=== PATIENT | female | born 1940 | race Caucasian/White ===

== ENCOUNTER → 2016-12-09 | Day surgery (SDC) | payer MEDICARE, OTHER ==
[2016-12-08 11:53] VITALS: BMI 26.6
[~2016-12-09] MED LIST: Iopamidol-M 300 61% 15 ML VIAL ONE
[2016-12-09 10:01] VITALS: BP 151/92; TEMP 98.3
--- NOTE | 2016-12-09 12:35 | RAD ---
LUMBAR SPINE FOUR VIEWS: History: Lumbar radiculopathy. FINDINGS: AP view along with lateral views obtained. Lateral views obtained in neutral, flexion, and extension positions. FINDINGS: In the AP projection there is a slight sclerotic curvature to the left with apex at L2-3. Moderate d egenerative changes are noted. There is loss of disc height at all levels of the lumbar spine. Promi nent osteophytes are seen. There is slight lateral wedging of the L2 and L3 vertebra on the right wh ich contributes to the scoliotic curvature. Facet hypertrophy is seen throughout. Minimal anterolist hesis at L5-S1. No significant change in alignment with flexion or extension. IMPRESSION: Moderate degenerative changes of the lumbar spine. POS: HENRY
--- NOTE | 2016-12-09 12:37 | RAD ---
CERVICAL SPINE SIX VIEWS: Technique: Lateral views obtained in neutral, flexion, and extension positions. History: Cervical radiculopathy. Date: 12-09-16 FINDINGS: Degenerative changes of the cervical spine noted. There is loss of disc space at C5-6 and C6-7. Prom inent anterior osteophytes are seen at C4-5, C5-6, and C6-7. Slight posterior subluxation at C5-6 me asuring approximately 3 mm. Vertebral body height is preserved. No significant change in alignment w ith flexion or extension. IMPRESSION: Moderate to severe degenerative changes seen in the cervical spine from C4 through C7 as described. POS: HENRY
--- NOTE | 2016-12-09 14:40 | RAD ---
LUMBAR AND CERVICAL MYELOGRAMS: FINDINGS: The home health cna film showed prominent degenerative changes of the lumbar spine with a scoliotic curvature with convexity to the right. Lumbar puncture performed with a 22 gauge spinal needle at the L2 leve l. Clear CSF was recovered. Isovue-300 M 15 mL was injected at this site, under fluoroscopic obser vation. The thecal sac opacifies at the injection site. Contrast opacifies the lumbar spinal canal. There is suggestion of tight stenosis at L4-L5. The patient was then placed head down with the neck extended. Contrast was seen to flow from the marlo mbar canal into the cervical canal. Once the cervical canal was opacified, the patient was placed b ack in the neutral position. See post myelogram CT of cervical spine and lumbar spine for further characterization of findings at each level. PROCEDURE IN DETAIL: The procedure was discussed with the patient and the OP permit was signed. The patient was placed prone on the fluoroscopy table. The lower back was prepped and draped in a s terile manner. L2 was chosen for puncture. Local anesthesia was administered with Lidocaine and bi carbonate, under fluoroscopic guidance. A 22 gauge spinal needle was used to enter the spinal canal , using a paramidline approach from the left, at L2. Clear CSF was recovered. Isovue-300 M 15 mL w as then injected into the thecal sac, under fluoroscopic observation. The patient was then placed h ead down, to allow contrast to flow into the cervical canal. A sterile dressing was applied. The p atient tolerated the procedure well. The patient was then sent to CT for post myelogram CT of the c ervical spine and the lumbar spine. POS: HENRY
--- NOTE | 2016-12-09 14:55 | CT ---
POST MYELOGRAM CERVICAL SPINE CT: HISTORY: Cervical radiculopathy. COMPARISON: None. TECHNIQUE: Post myelogram cervical spine CT was performed in the axial plane. Reformatted images were submitte d for interpretation. FINDINGS: The visualized soft tissue neck structures are unremarkable. There is some mass effect upon the pos terior midline oropharynx due to medial deviation of the right internal carotid artery. A heterogen eous appearance of the thyroid gland with a possible calcified lesion is noted. A hypodense lesion may also be present in the right thyroid lobe. A non-emergent thyroid ultrasound is recommended. T he upper mediastinum and lung apices are unremarkable. Thoracic spine vertebral body height is maintained. There is no fracture. There are degenerative c hanges of the intraarticular facets. Based on the coronal reformatted images, there is degenerative change involving the right C1-C2 lateral mass articulation. There are also mild degenerative yung es of the facets, as demonstrated on the coronal reformatted images. Anterolisthesis of 2.6 mm of C2 upon C3, anterolisthesis of 2.7 mm of C3 upon C4, and anterolisthesi s of 2.6 mm of C7 upon T1. C2-C3: No significant disk osteophyte complex. No significant central canal stenosis. Right and l eft neural foramina are patent. There is bilateral facet hypertrophy. C3-C4: Broad disk osteophyte complex abuts the thecal sac and effaces the ventral subarachnoid spa ce. Mild central canal stenosis. The right neural foramen is patent. Mild left foraminal narrowin g, due to degenerative change, of the uncovertebral joint and facet hypertrophy. C4-C5: Broad disk osteophyte complex abuts the thecal sac. There is deformity of the central and l eft paracentral cord. Mild central canal stenosis. Moderate right foraminal narrowing due to degen erative change of the uncovertebral joint and right facet hypertrophy. The left neural foramen is p atent. C5-C6: Broad-based disk osteophyte complex abuts the thecal sac. Ventral subarachnoid space appear s to be maintained. No significant mass effect upon the cervical cord. Mild central canal stenosis . Degenerative changes of the right uncovertebral joint and right facet hypertrophy result in moder ate right foraminal narrowing. The left neural foramen is patent. C6-C7: Broad-based disk osteophyte complex abut the thecal sac. There is mild central canal stenos is. The right neural foramen is patent. Mild left foraminal narrowing. C7-T1: No significant disk osteophyte complex. No significant central canal stenosis. The neural foramina are patent. IMPRESSION: Degenerative changes of the cervical spine, as detailed above. POS: HENRY
--- NOTE | 2016-12-09 15:11 | CT ---
POST MYELOGRAM LUMBAR SPINE CT: History: Lumbar radiculopathy. Comparison: None. Technique: Post myelogram lumbar spine CT is performed in the axial plane. Reformatted images are ha bmitted for interpretation. FINDINGS: The gallbladder appears to be surgically absent. Atherosclerosis of a nonaneurysmal aorta is noted. No retroperitoneal mass, lymphadenopathy, or hematoma. Symmetric attenuation of the psoas muscles. V isualized alimentary canal is unremarkable. Limited evaluation of the solid organs due to technique. No obvious solid organ abnormality. Coronal reformatted images demonstrate leftward curvature of the lumbar spine. There are five lumbar type vertebral bodies. The apex of the curvature of the lumbar spine is at the L2-3 level. There is vacuum disc phenomenon at T11-12, L1-2, through L5-S1. Lumbar spine vertebral height is maintained. There is no fracture. Conus medullaris terminates at th e superior endplate of L1. T11-L2: No high grade central canal stenosis. There appears to be moderate bilateral neural foramina l narrowing. T12-L1: No significant posterior disc abnormality. No significant canal stenosis or foraminal narrow ing. L1-2: Vacuum disc phenomenon. Broad based disc bulge, ligamentum flavum thickening, and mild to mode rate central canal stenosis. Moderate severe right and mild to moderate left neural foraminal narrow ing. L2-3: Vacuum disc phenomenon. There is broad based disc bulge, ligamentum flavum thickening, mild to moderate central canal stenosis. Mild right and left neural foraminal narrowing. L3-4: Vacuum disc phenomenon. There is a broad based disc bulge, ligamentum flavum thickening and fa cet hypertrophy that result in moderate to severe central canal stenosis. The thecal sac demonstrate s minimal contrast at this level. Mild to moderate bilateral neural foraminal narrowing. L4-5: Vacuum disc phenomenon. Broad based disc bulge. Ligamentum flavum thickening results in mild c anal stenosis. Moderate right and severe left foraminal narrowing. L5-S1: Vacuum disc phenomenon. No significant high grade central canal stenosis. Moderate right and severe left foraminal narrowing. Note, there is abrupt decrease in intrathecal contrast below the L3-4 level likely due to central ca nal stenosis at L3-4. There is some contrast present at the L4-5 and L5-S1 level. A small amount of contrast in the S2 level is noted. IMPRESSION: 1. Degenerative change of the lumbar spine as above. There is significant central canal stenosis at L3-4. POS: DAMIAN
== END ==
LOC: RAD 08:59
PROVIDERS: ATTEND Surgery
PROC: B01BYZZ Fluoroscopy of Spinal Cord using Other Contrast (ICD-10-PCS; principal; 2016-12-09)
DX: M54.12 Radiculopathy, cervical region (principal); M54.16 Radiculopathy, lumbar region; M54.81 Occipital neuralgia; I10 Essential (primary) hypertension; M47.9 Spondylosis, unspecified; Z88.8 Allergy status to other drugs, medicaments and biological substances; Z88.5 Allergy status to narcotic agent; Z79.51 Long term (current) use of inhaled steroids; Z79.899 Other long term (current) drug therapy; Z95.0 Presence of cardiac pacemaker; Z90.89 Acquired absence of other organs; Z90.49 Acquired absence of other specified parts of digestive tract; Z98.42 Cataract extraction status, left eye; Z98.41 Cataract extraction status, right eye; Z98.890 Other specified postprocedural states
CPT/HCPCS: 62305; 72050; 72120; 72126; 72132

== ENCOUNTER 2017-10-19 08:08 | Outpatient (CLI) | payer MEDICARE ==
[2017-10-19 11:32] LABS: Hemoglobin 13.9 g/dL (12.0-16.0); Mean Corpuscular HGB CONC 35.6 g/dL (32.0-36.0); Mean Corpuscular Hemoglobin 33.8 pg (27.0-31.0); Mean Platelet Volume 7.8 fL (7.4-10.4); Platelet Count 143 thou/uL (130-400); RBC Distribution Width 12.1 % (11.5-14.5); Red Blood Cell (RBC) Count 4.12 mill/uL (4.20-5.40); White Blood Cell (WBC) Count 5.1 thou/uL (4.8-10.8)
[2017-10-19 11:41] LABS: INR-International Normal Ratio 1.1; PTT 30.5 SEC (22.9-36.1); Prothrombin Time 14.2 SEC (12.0-14.7)
[2017-10-19 11:55] LABS: Anion Gap 15 mmol/L (10-20); BUN (Urea Nitrogen) 19 mg/dL (9.8-20.1); Calc. Creatinine Clearance 0 mL/min (70-130); Calcium 9.5 mg/dL (7.8-10.44); Carbon Dioxide 27 mmol/L (23-31); Chloride 96 mmol/L (98-107); Estimated GFR-MDRD 85; Glucose 87 mg/dL (83-110); Potassium 3.4 mmol/L (3.5-5.1); Sodium 135 mmol/L (136-145)
--- NOTE | 2017-10-19 12:22 | CT ---
CT ARTERIOGRAM CHEST WITH AND WITHOUT IV CONTRAST WITH 3D POSTPROCESSING: Date: 10/19/17 HISTORY: Chest pain. Atrial fibrillation. Dyspnea. Coronary mapping. FINDINGS: There is good contrast opacification of the central pulmonary arteries and thoracic aorta with normal branching of the great vessels. Small amount of arterial calcification at the aortic arch and solitario ry arteries. No pleural fluid, pneumothorax, or mediastinal adenopathy are apparent. Minimal pericard ial fluid. Lungs are incompletely imaged. IMPRESSION: Atherosclerosis. No acute abnormalities are otherwise demonstrate. POS: HENRY
--- NOTE | 2017-10-19 12:31 | EKG ---
Test Reason : Blood Pressure : / mmHG Vent. Rate : 089 BPM Atrial Rate : 441 BPM P-R Int : 000 ms QRS Dur : 086 ms QT Int : 386 ms P-R-T Axes : 000 -32 -46 degrees QTc Int : 469 ms Electronic atrial pacemaker Left axis deviation Possible Anterior infarct (cited on or before 15-JUN-2012) Abnormal ECG When compared with ECG of 15-JUN-2012 09:25, Electronic atrial pacemaker has replaced Sinus rhythm Vent. rate has increased BY 31 BPM QT has lengthened Confirmed by CURT CAMPBELL, SSnow ([id number]) on 10/19/2017 12:30:43 PM Referred By: [facility] Confirmed By:DR. Kin ELIAS MD
[2017-10-19] MEDS ORDERED: Iopamidol 370 76% 100 ML VIAL ONE (14:47)
== END 2017-10-19 08:09 | disposition home or self-care (01) ==
LOC: CT 08:08
PROVIDERS: ATTEND Internal Medicine Cardiovascular Disease
DX: I48.0 Paroxysmal atrial fibrillation (principal); I70.90 Unspecified atherosclerosis
CPT/HCPCS: 71275; 82565; 84520; 85027; 85610; 85730; 93005; 93010

== ENCOUNTER 2017-10-25 08:08 | Observation (INO) | payer MEDICARE ==
[2017-10-25] MEDS ORDERED: Heparin 10,000 UNITS/1 ML VIAL ONE (08:56)
[2017-10-25] MEDS ORDERED: Isoproterenol 0.2 MG/1 ML AMP ONE (09:00)
[2017-10-25] MEDS ORDERED: Phenylephrine HCL 10 MG/ML VIAL ONE (10:28)
[2017-10-25] MEDS ORDERED: Fentanyl 100 MCG/2 ML VIAL ONE (10:55)
[2017-10-25] MEDS ORDERED: Heparin 25,000 units/D5W 500 ML ONE (11:54)
--- NOTE | 2017-10-25 13:23 | OP ---
DATE OF PROCEDURE: 10/25/2017 SURGEON: Dr. Kavon Willingham PROCEDURE: ELECTROPHYSIOLOGY STUDY/RADIOFREQUENCY ABLATION REFERRING PHYSICIAN: Dr. Edgardo Amezcua Mrs. Stafford is here, hence paroxysmal high symptomatic atrial fibrillation episodes. She has history of sick sinus syndrome and a pacemaker implantation in place. She is here for radiofrequency ablation of pulmonary venous isolation procedure. PROCEDURE: The patient received propofol per Anesthesia specialist for general anesthesia. After adequate sedation achieved, the left and right femoral venous area was prepped, draped, anesthetized with subcutaneous lidocaine. Under ultrasound guidance, the left femoral vein was cannulated and an 11 Moldovan short sheath as well as Prefecees catheter long sheath was advanced into the inferior vena cava. Through this a dual Deca catheter was advanced to the right atrium and eventually the CS was cannulated. An ice catheter was advanced through the Moldovan sheath to the right atrium and this was used to monitor the transseptal procedures as well as the pericardial space for effusion. No effusion was noted throughout the procedure. The patient remained hemodynamically stable. The right femoral vein was also cannulated with ultrasound guidance and two 8 Moldovan short sheaths were introduced which was exchanged for a SI 1 transseptal sheath. The transseptal sheath, a transseptal puncture was performed x2, one of the sheaths were exchanged to an Agilis deflectable sheath through which a Lasso catheter was then inserted right atrium used to obtain 3D images of the right atrium as well. Following that, the ablation catheter was advanced to the left atrium and a pulmonary venous isolation procedure was performed eliminating potentials in all 4 pulmonary veins. In fact, there was small intermediate vein in between the right superior and right inferior vein and the signals also eliminating this vein as well. Following that ventricular pacing proved no VA conduction from the left ventricle. Burst atrial pacing induced only transient atrial fibrillation. No other arrhythmia was induced. The pacemaker was monitored throughout the procedure and adequate pacing and sensing numbers were ascertained by the end of the case. ICE images revealed no significant fluid accumulation in the pericardial space and cardiac silhouette did not change. Following that isuprel was also used at 10 mcg and we rechecked the patency of the pulmonary veins, any remaining reconnection was re-ablated. Following that the catheter was removed from the left atrium. IV heparin was used throughout the left atrial excess ascertaining ACT over 350. At this point , the ACT was rechecked and the heparin was reversed with protamine. Total ablation time was 70 minutes and 56 seconds. Total number of lesions 26. 40 garay was used throughout the procedure. The esophageal probe and the vagus was used to monitor temperature throughout the case. CONCLUSION: 1. Successful pulmonary venous isolation procedure. 2. Adequate pacemaker function pre and post-procedure. 3. Plan routine postoperative care. Resume anticoagulation. Monitor for recurrence. MTDD
[2017-10-25] MEDS ORDERED: Protamine Sulfate 50 MG/5 ML VIAL ONE (13:50)
[2017-10-25] MEDS ORDERED: Acetaminophen/Codeine 30-300mg Tablet PO PRN ×2 (14:20)
[2017-10-25] MEDS ORDERED: Heparin 30,000 units/30 ml VIAL ONE (15:08)
[2017-10-25] MEDS ORDERED: PROPOFOL 200 MG/20 ML VIAL ONE (15:08)
[2017-10-25] MEDS ORDERED: PHENYLEPHRINE-NS 100 MCG/ML 10 ML SYRINGE ONE (15:08)
[2017-10-25] MEDS ORDERED: Lidocaine 1% PF 5 ML VIAL ONE (15:08)
[2017-10-25] MEDS ORDERED: Ondansetron HCl/PF 4 MG/2 ML Vial ONE (15:08)
[2017-10-25] MEDS ORDERED: Acetaminophen 325 MG TAB PO PRN ×2 (18:27→20:20)
[2017-10-25] MEDS ORDERED: traMADol HCl 50 MG TAB PO PRN (18:27)
[2017-10-25] MEDS ORDERED: Acetaminophen 500 MG TAB ONE (18:43)
[2017-10-25 19:42] VITALS: BMI 27.6
[2017-10-25] MEDS: Metoprolol Tartrate 25 MG TAB PO SCH (20:59)
[2017-10-25] MEDS: Apixaban 2.5 MG TAB PO SCH (21:01)
--- NOTE | 2017-10-25 22:41 | EKG ---
Test Reason : POST ABLATION Blood Pressure : / mmHG Vent. Rate : 082 BPM Atrial Rate : 083 BPM P-R Int : 000 ms QRS Dur : 088 ms QT Int : 402 ms P-R-T Axes : 000 024 074 degrees QTc Int : 469 ms Electronic atrial pacemaker When compared with ECG of 19-OCT-2017 11:02, Borderline criteria for Anterior infarct are no longer Present Nonspecific T wave abnormality has replaced inverted T waves in Inferior leads Confirmed by Gissel WILEY ([id number]) on 10/25/2017 10:41:06 PM Referred By: NAYAN Confirmed By:Gissel WILEY
--- NOTE | 2017-10-25 23:04 | RAD ---
PORTABLE CHEST ONE VIEW: 10/25/2017 10:26 p.m. HISTORY: Postop chest. FINDINGS: The heart size is normal. The aorta is tortuous. There is a left-sided pacemaker device. The lungs are well expanded without lobar consolidation, pneumothoraces, or pleural effusions. There is a mad[place] cified granuloma in the right lower lung. There are postop changes of bilateral rotator cuff repair. IMPRESSION: No radiographic evidence of acute cardiopulmonary process. POS: HENRY
[2017-10-26 07:32] VITALS: TEMP 99.1
[2017-10-26] MEDS ORDERED: Furosemide 20 MG TAB PO SCH (09:00)
[2017-10-26] MEDS ORDERED: Loratadine 10 MG TAB PO SCH (09:00)
[2017-10-26] MEDS ORDERED: Hydrochlorothiazide 25 MG TAB PO SCH (09:00)
[2017-10-26] MEDS ORDERED: Multivitamin W/ Minerals 1 TAB PO SCH (09:00)
[2017-10-26] MEDS ORDERED: Citalopram 10 MG TAB PO SCH (09:00)
[2017-10-26] MEDS ORDERED: Fluticasone Propionate Nasal Spray 16 gm Bottle NASAL SCH (09:00)
[2017-10-26] MEDS: Apixaban 2.5 MG TAB PO SCH (09:19)
[2017-10-26] MEDS: Metoprolol Tartrate 25 MG TAB PO SCH (09:19)
[2017-10-26 12:11] VITALS: BP 120/59
--- NOTE | 2017-10-27 05:19 | DIS ---
DATE OF ADMISSION: 10/25/2017 DATE OF DISCHARGE: 10/26/2017 REFERRING PHYSICIAN: Dr. Amezcua. ADMISSION PROBLEMS: 1. Paroxysmal atrial fibrillation. 2. Sick sinus syndrome with a dual chamber pacemaker in place. 3. Status post elective pulmonary venous isolation procedure. HOSPITAL COURSE: Ms. Stafford underwent a pulmonary venous isolation procedure hence symptomatic atrial fibrillation. She tolerate the procedure well and no complications were noted subsequently, she is atrially paced in the telemetry strips. PHYSICAL EXAMINATION: VITAL SIGNS: Her vital signs are stable with blood pressure 120/59, heart rate 89, respirations are 20, temperature 99.1 degrees Fahrenheit. HEENT: Reveals no arrhythmias, no abnormalities, pacemaker site is stable. The right groin site without significant hematoma. LUNGS: Coarse without crackles. CARDIOVASCULAR: Heart sounds are regular rate and rhythm. NECK: No JVD is appreciated. SKIN: Without rash. ASSESSMENT AND PLAN: Ms. Stafford is a 76-year-old woman who had paroxysmal atrial fibrillation, underwent a pulmonary venous isolation procedure by Dr. Willingham isolating all four pulmonary veins. She tolerated procedure well. Currently, no signs of fluid overload or other complications are seen. She is ready for discharge. She is being discharged to home with her current medication including apixaban 2.5 mg twice a day, metoprolol tartrate 12.5 mg twice a day, furosemide 20 mg daily. She was given prescriptions for extra furosemide if necessary, also Protonix and carafate for 2-4 weeks. She will follow up in our office in 6 weeks. JEANINE
== END 2017-10-26 15:05 | disposition home or self-care (01) ==
LOC: CCL 08:08 → 2NO 18:36
PROVIDERS: ADMIT Internal Medicine Cardiovascular Disease; ATTEND Internal Medicine Cardiovascular Disease
PROC: 4A023FZ Measurement of Cardiac Rhythm, Percutaneous Approach (ICD-10-PCS; principal; 2017-10-25)
PROC: 02583ZZ Destruction of Conduction Mechanism, Percutaneous Approach (ICD-10-PCS; 2017-10-25)
DX: I48.0 Paroxysmal atrial fibrillation (principal); I49.5 Sick sinus syndrome; Z95.0 Presence of cardiac pacemaker; Z79.01 Long term (current) use of anticoagulants; Z79.51 Long term (current) use of inhaled steroids; Z79.899 Other long term (current) drug therapy; Z88.5 Allergy status to narcotic agent; Z88.8 Allergy status to other drugs, medicaments and biological substances
CPT/HCPCS: 71045; 76942; 85347 ×2; 93005 ×2; 93613; 93622; 93623; 93656; 93662; C1730; C1731; C1732 ×2; C1759; C1769; G0378; 93010; J1644; J2001; J2370; J2405; J2704; J2720; J3010

== ENCOUNTER 2018-04-07 07:29 | Outpatient (CLI) | payer MEDICARE ==
[2018-04-07 14:05] LABS: Bilirubin Negative (Negative); Blood, Urine Negative (Negative); Clarity CLEAR (Clear); Glucose, Urine (Dipstick) Negative (Negative); Leukocyte Trace (Negative); Nitrite Negative (Negative); Protein, Urine (Dipstick) Negative (Neg-Trace); Specific Gravity, Urine 1.014 (1.002-1.036); Urobilinogen 0.2 mg/dL (0.2-1.0); pH, Urine 7.5 (5.0-9.0)
[2018-04-07 14:11] LABS: Bacteria/HPF None Seen HPF (None Seen); Hyaline Casts/LPF 0-3 HYALINE CAST LPF (0-3 Hyaline); RBC/HPF 0-3 HPF (0-3); Squamous Epithelial 0-3 HPF (0-3)
--- NOTE | 2018-04-07 17:17 | EKG ---
Test Reason : Blood Pressure : / mmHG Vent. Rate : 089 BPM Atrial Rate : 088 BPM P-R Int : 000 ms QRS Dur : 084 ms QT Int : 342 ms P-R-T Axes : 000 005 051 degrees QTc Int : 416 ms Atrial pacemaker Low voltage QRS Poor anterior R wave progression Nonspecific ST-T changes Abnormal ECG When compared with ECG of 26-OCT-2017 06:39, Atrial fibrillation has replaced Electronic atrial pacemaker Confirmed by DR. Len BISWAS ([id number]) on 04/07/2018 5:17:33 PM Referred By: [facility] Confirmed By:DR. Len BISWAS
== END 2018-04-07 07:30 | disposition home or self-care (01) ==
LOC: LABBT 07:29
PROVIDERS: ATTEND Orthopaedic Surgery
DX: Z01.818 Encounter for other preprocedural examination (principal); M17.11 Unilateral primary osteoarthritis, right knee
CPT/HCPCS: 81001; 87081; 93005; 93010

== ENCOUNTER 2018-04-13 08:48 | Outpatient (CLI) | payer MEDICARE ==
[2018-04-13 11:51] LABS: Prothrombin Time 13.3 SEC (12.0-14.7)
[2018-04-13 11:54] LABS: Hemoglobin 10.8 g/dL (12.0-16.0); Mean Corpuscular HGB CONC 34.8 g/dL (32.0-36.0); Mean Corpuscular Hemoglobin 36.8 pg (27.0-31.0); Platelet Count 144 thou/uL (130-400); RBC Distribution Width 13.8 % (11.5-14.5); Red Blood Cell (RBC) Count 2.93 mill/uL (4.20-5.40); White Blood Cell (WBC) Count 2.2 thou/uL (4.8-10.8)
[2018-04-13 12:05] LABS: Anion Gap 11 mmol/L (10-20); BUN (Urea Nitrogen) 24 mg/dL (9.8-20.1); Calc. Creatinine Clearance 0 mL/min (70-130); Calcium 9.7 mg/dL (7.8-10.44); Carbon Dioxide 30 mmol/L (23-31); Chloride 104 mmol/L (98-107); Estimated GFR-MDRD 79; Glucose 96 mg/dL (83-110); Potassium 3.4 mmol/L (3.5-5.1); Sodium 142 mmol/L (136-145)
[2018-04-13 12:26] LABS: Band 4 % (5-11); Lymphocytes 65 % (21-51); MDiff Complete? YES; Monocytes 5 % (0-10); Neutrophil 25 % (42-75); Polychromasia SLIGHT = 2-3 cells (100X) (0-2/hpf)
== END 2018-04-13 08:49 | disposition home or self-care (01) ==
LOC: LABBT 08:48
PROVIDERS: ATTEND Orthopaedic Surgery
DX: Z01.812 Encounter for preprocedural laboratory examination (principal); M17.11 Unilateral primary osteoarthritis, right knee
CPT/HCPCS: 80048; 85025; 85610; 86850; 86900; 86901

== ENCOUNTER 2018-04-18 07:39 | Inpatient (IN) | payer MEDICARE ==
[2018-04-18] MEDS ORDERED: Sodium Chloride 0.9% 100 ML ONE (08:22)
[2018-04-18] MEDS ORDERED: Tranexamic Acid 1,000 MG/10 ML VIAL ONE ×2 (08:22→12:33)
[2018-04-18] MEDS ORDERED: CEFAZOLIN 2 GM/50 ML BAG ONE (08:22)
[2018-04-18] MEDS ORDERED: Midazolam HCl 2 mg/2 ml Vial ONE (09:08)
[2018-04-18] MEDS ORDERED: Fentanyl 100 MCG/2 ML VIAL ONE ×2 (09:08→12:35)
[2018-04-18] MEDS ORDERED: Bupivacaine PF 0.5% 30 ML VIAL ONE (09:23)
[2018-04-18] MEDS ORDERED: traMADol HCl 50 MG TAB PO PRN ×3 (10:29→10:40)
[2018-04-18] MEDS ORDERED: diphenhydrAMINE 25 MG CAP PO PRN (10:29)
[2018-04-18] MEDS ORDERED: Fentanyl 100 MCG/2 ML VIAL SLOW IVP PRN (10:29)
[2018-04-18] MEDS ORDERED: Promethazine HCl 25 MG/ML VIAL IM PRN ×3 (10:29→12:28)
[2018-04-18] MEDS ORDERED: Zolpidem Tartrate 5 MG TAB PO PRN ×2 (10:29→10:40)
[2018-04-18] MEDS ORDERED: Ondansetron PF 4 MG/2 ML Vial IVP PRN ×2 (10:29→10:40)
[2018-04-18] MEDS ORDERED: Acetaminophen 325 MG TAB PO PRN (10:29)
[2018-04-18] MEDS ORDERED: Tranexamic Acid 1,000 MG in Sodium Chloride 0.9% 100 ML IVPB SCH (10:30)
[2018-04-18] MEDS ORDERED: CEFAZOLIN/Water 2 GM/20 ML SYRINGE SLOW IVP SCH (10:30)
[2018-04-18] MEDS ORDERED: Loratadine 10 MG TAB PO PRN (10:33)
[2018-04-18] MEDS ORDERED: Pentazocine HCl/Naloxone HCl 50/0.5 MG TAB PO PRN ×3 (10:34→23:59)
[2018-04-18] MEDS ORDERED: Acetaminophen/Codeine 30-300mg Tablet PO PRN (10:39)
[2018-04-18] MEDS ORDERED: Ropivacaine HCl/PF 250 ML in Premix Bag 1 BAG NERVE BLCK SCH (10:40)
[2018-04-18] MEDS ORDERED: Fentanyl 100 MCG/2 ML VIAL IV PRN (10:40)
[2018-04-18] MEDS ORDERED: Ondansetron HCl/PF 4 MG/2 ML Vial IVP PRN (12:28)
[2018-04-18] MEDS ORDERED: Promethazine HCl 25 MG/ML VIAL SLOW IVP PRN (12:28)
[2018-04-18 14:18] VITALS: BMI 28.3
[2018-04-18] MEDS ORDERED: Ropivacaine 0.5% HCl/PF (150 MG/30 ML VIAL) ONE (14:43)
[2018-04-18] MEDS ORDERED: Bupivacaine 0.25% HCL 30 ML VIAL ONE (14:43)
[2018-04-18] MEDS: Sodium Chloride 0.9% 1,000 ML IV SCH ×2 (15:01→20:33)
[2018-04-18] MEDS ORDERED: PHENYLEPHRINE-NS 100 MCG/ML 10 ML SYRINGE ONE (15:02)
[2018-04-18] MEDS ORDERED: PROPOFOL 200 MG/20 ML VIAL ONE (15:02)
[2018-04-18] MEDS ORDERED: Dexamethasone 20 MG/5 ML VIAL ONE (15:02)
[2018-04-18] MEDS ORDERED: Ondansetron PF 4 MG/2 ML Vial ONE (15:02)
[2018-04-18] MEDS ORDERED: Lidocaine 1% PF 5 ML VIAL ONE (15:02)
[2018-04-18] MEDS: CEFAZOLIN 2 GM/50 ML-DEXTROSE 2 GM in Premix Bag 1 BAG IVPB SCH ×2 (15:12→23:14)
--- NOTE | 2018-04-18 15:19 | PDOC.PN ---
- Subjective Encounter Start Date: 04/18/18 Encounter Start Time: 15:17 Patient seen and examined for med mngt. No new complaints. Pain controlled. - Objective MAR Reviewed: Yes Vital Signs & Weight: Vital Signs (12 hours) Temp Pulse Resp BP Pulse Ox 04/18/18 14:00 98.2 F 90 18 107/61 95 Weight Weight 165 lb Additional Labs: Laboratory Tests 10/29/15 04/13/18 04/13/18 13:33 11:05 11:05 Hgb 10.8 L Potassium 3.4 L Creatinine 0.71 Est GFR (Non-Af Amer) 74 EKG Reviewed by me: Yes (Paced) Phys Exam - Physical Examination Constitutional: NAD Respiratory: no wheezing, no rhonchi Cardiovascular: RRR, no rub Gastrointestinal: soft, non-tender, positive bowel sounds Musculoskeletal: no edema Neurological: moves all 4 limbs Psychiatric: A&O x 3 Dx/Plan (1) Hypokalemia Code(s): E87.6 - HYPOKALEMIA Status: Acute (2) CKD (chronic kidney disease) stage 2, GFR 60-89 ml/min Code(s): N18.2 - CHRONIC KIDNEY DISEASE, STAGE 2 (MILD) Status: Chronic (3) SSS (sick sinus syndrome) Code(s): I49.5 - SICK SINUS SYNDROME Comment: s/p pacemaker (4) Hypertension Code(s): I10 - ESSENTIAL (PRIMARY) HYPERTENSION Status: Chronic (5) H/O atrial flutter Code(s): Z86.79 - PERSONAL HISTORY OF OTHER DISEASES OF THE CIRCULATORY SYSTEM Comment: s/p ablation - Plan DVT proph w/SCDs Cont Metoprolol - add holding parameters -: Hold HCTZ -: Replace Potassium -: AM labs -: Will follow. Thank you for this consultation. Full code. DPOA - self/family Review of Systems - Review of Systems Respiratory: negative: Cough, Dry, Shortness of Breath, Hemoptysis, SOB with Excertion, Pleuritic Pain, Sputum, Wheezing Cardiovascular: negative: chest pain, palpitations, orthopnea, paroxysmal nocturnal dyspnea, edema, light headedness, other Gastrointestinal: negative: Nausea, Vomiting, Abdominal Pain, Diarrhea, Constipation, Melena, Hematochezia, Other Genitourinary: negative: Dysuria, Frequency, Incontinence, Hematuria, Retention , Other - Medications/Allergies Allergies/Adverse Reactions: Allergies Allergy/AdvReac Type Severity Reaction Status Date / Time acetaminophen Allergy Stomach Verified 04/07/18 12:38 [From Tylenol-Codeine] Ache codeine Allergy Stomach Verified 04/07/18 12:38 [From Tylenol-Codeine] Ache hydrocodone bitartrate AdvReac Nausea Verified 10/22/17 16:31 [From Lortab] Medications: Current Medications Acetaminophen (Tylenol) 650 mg PO Q4H PRN PRN Reason: Headache/Fever or Pain Acetaminophen/Codeine Phosphate (Tylenol #3) 1 tab PO Q4H PRN PRN Reason: Mild Pain (1-3) Acetaminophen/Codeine Phosphate (Tylenol #3) 2 tab PO Q4H PRN PRN Reason: Moderate Pain (4-6) Aspirin (Ecotrin) 81 mg PO BID [facility] Celecoxib (Celebrex) 200 mg PO DAILY [facility] Citalopram Hydrobromide (Celexa) 10 mg PO DAILY [facility] Diphenhydramine HCl (Benadryl) 25 mg PO Q6H PRN PRN Reason: Itching Fentanyl (Sublimaze) 100 mcg SLOW IVP Q1H PRN PRN Reason: Severe Pain (7-10) Fentanyl (Sublimaze) 50 mcg IV Q1H PRN PRN Reason: BREAKTHROUGH PAIN Fentanyl (Pacu-Sublimaze) 50 mcg SLOW IVP Q10MIN PRN PRN Reason: Moderate to Severe Pain (6-10) Stop: 04/18/18 15:28 Ferrous Gluconate (Fergon) 324 mg PO BID [facility] Fluticasone Propionate (Flonase Nasal Bladen) 0 gm NASAL DAILY [facility] Furosemide (Lasix) 20 mg PO DAILY [facility] Sodium Chloride (Normal Saline 0.9%) 1,000 mls @ 100 mls/hr IV .Q10H [facility] Last Admin: 04/18/18 15:01 Dose: Not Given Vancomycin HCl 1 gm/ Device 200 mls @ 200 mls/hr IVPB 2100 [facility] Stop: 04/18/18 21:59 Ropivacaine 250 ml/ Device 250 mls @ 0 mls/hr NERVE BLCK INF [facility] Cefazolin Sodium/Dextrose 2 gm (/ Device) 50 mls @ 100 mls/hr IVPB 0000,1600 [facility] Stop: 04/19/18 00:29 Last Admin: 04/18/18 15:12 Dose: 50 mls Iron/Minerals/Multivitamins (Theragran M) 1 tab PO DAILY [facility] Loratadine (Claritin) 10 mg PO DAILY PRN PRN Reason: Allergies Metoprolol Tartrate (Lopressor) 12.5 mg PO BID [facility] Ondansetron HCl (Zofran) 4 mg IVP Q6H PRN PRN Reason: Nausea/Vomiting Ondansetron HCl (Pacu-Zofran) 4 mg IVP ONE PRN PRN Reason: Nausea/Vomiting Stop: 04/18/18 15:28 Pentazocine HCl/Naloxone HCl (Talwin Nx) 1 tab PO Q6HR PRN PRN Reason: Pain Promethazine HCl (Phenergan) 12.5 mg IM Q4H PRN PRN Reason: Nausea Promethazine HCl (Pacu-Phenergan) 6.25 mg SLOW IVP ONE PRN PRN Reason: Nausea/Vomiting Stop: 04/18/18 15:28 Promethazine HCl (Pacu-Phenergan) 6.25 mg IM ONE PRN PRN Reason: Nausea/Vomiting Stop: 04/18/18 15:28 Senna/Docusate Sodium (Senokot S) 2 tab PO BID [facility] Sodium Chloride (Flush - Normal Saline) 10 ml IVF PRN PRN PRN Reason: Saline Flush Tramadol HCl (Ultram) 50 mg PO Q6H PRN PRN Reason: Mild Pain (1-3) Tramadol HCl (Ultram) 100 mg PO Q6H PRN PRN Reason: Moderate Pain 4-6 Zolpidem Tartrate (Ambien) 5 mg PO HSPRN PRN PRN Reason: Insomnia
[2018-04-18] MEDS: Potassium Chloride 10 MEQ TAB PO SCH (16:33)
[2018-04-18] MEDS: Ferrous Gluconate 324 MG TAB PO SCH (20:34)
[2018-04-18] MEDS: Metoprolol Tartrate 25 MG TAB PO SCH (20:35)
[2018-04-18] MEDS: Senokot S 8.6-50 MG TAB PO SCH (20:35)
[2018-04-18] MEDS: Aspirin 81 mg Enteric Coated Tablet PO SCH (20:35)
[2018-04-18] MEDS: Acetaminophen/Codeine 30-300mg Tablet PO PRN (20:37)
[2018-04-18] MEDS: Polyethylene Glycol 3350 17 GM Packet PO SCH (20:38)
[2018-04-18] MEDS ORDERED: Metoprolol Tartrate 25 MG TAB PO SCH (21:00)
[2018-04-18] MEDS ORDERED: Vancomycin HCl 1 GM in Premix Bag 1 BAG IVPB SCH (21:00)
[2018-04-18] MEDS ORDERED: CeleCOXIB 100 MG CAP PO SCH (21:00)
[2018-04-19] MEDS: Acetaminophen/Codeine 30-300mg Tablet PO PRN ×4 (02:00→20:45)
[2018-04-19] MEDS: Sodium Chloride 0.9% 1,000 ML IV SCH ×2 (05:37→15:30)
[2018-04-19 06:28] LABS: Anion Gap 10 mmol/L (10-20); BUN (Urea Nitrogen) 16 mg/dL (9.8-20.1); Calc. Creatinine Clearance 83 mL/min (70-130); Calcium 8.4 mg/dL (7.8-10.44); Carbon Dioxide 25 mmol/L (23-31); Chloride 104 mmol/L (98-107); Estimated GFR-MDRD 88; Glucose 134 mg/dL (83-110); Magnesium 1.9 mg/dL (1.6-2.6); Potassium 3.5 mmol/L (3.5-5.1); Sodium 135 mmol/L (136-145)
[2018-04-19 06:40] LABS: Hemoglobin 8.5 g/dL (12.0-16.0); Mean Corpuscular HGB CONC 34.5 g/dL (32.0-36.0); Mean Corpuscular Hemoglobin 37.4 pg (27.0-31.0); Mean Platelet Volume 7.1 fL (7.4-10.4); Platelet Count 114 thou/uL (130-400); RBC Distribution Width 13.6 % (11.5-14.5); Red Blood Cell (RBC) Count 2.27 mill/uL (4.20-5.40); White Blood Cell (WBC) Count 2.9 thou/uL (4.8-10.8)
[2018-04-19] MEDS: Potassium Chloride 10 MEQ TAB PO SCH ×2 (07:48→16:40)
[2018-04-19] MEDS: Multivitamin W/ Minerals 1 TAB PO SCH (07:50)
[2018-04-19] MEDS: CeleCOXIB 100 MG CAP PO SCH (07:51)
[2018-04-19] MEDS: Ferrous Gluconate 324 MG TAB PO SCH ×2 (07:51→20:38)
[2018-04-19] MEDS: Aspirin 81 mg Enteric Coated Tablet PO SCH ×2 (07:52→20:38)
[2018-04-19] MEDS: Furosemide 20 MG TAB PO SCH (07:52)
[2018-04-19] MEDS: Senokot S 8.6-50 MG TAB PO SCH ×2 (07:52→20:38)
[2018-04-19] MEDS ORDERED: [UNRECOGNIZED DRUG - OTHER] PO SCH (09:00)
[2018-04-19] MEDS ORDERED: Hydrochlorothiazide 25 MG TAB PO SCH (09:00)
[2018-04-19] MEDS ORDERED: CeleCOXIB 100 MG CAP PO SCH ×2 (09:00)
[2018-04-19] MEDS ORDERED: LUTEIN PO SCH (09:00)
[2018-04-19] MEDS ORDERED: Furosemide 20 MG TAB PO SCH (09:00)
[2018-04-19] MEDS ORDERED: MULTIVIT MIN PO SCH (09:00)
[2018-04-19] MEDS ORDERED: LYCOPEN PO SCH (09:00)
[2018-04-19] MEDS ORDERED: Multivitamin W/ Minerals 1 TAB PO SCH (09:00)
[2018-04-19] MEDS: Metoprolol Tartrate 25 MG TAB PO SCH ×2 (09:04→20:38)
--- NOTE | 2018-04-19 11:02 | OP ---
DATE OF PROCEDURE: 04/18/2018 PREOPERATIVE DIAGNOSIS: Right knee osteoarthrosis. POSTOPERATIVE DIAGNOSIS: Right knee osteoarthrosis. PROCEDURE PERFORMED: Right total knee replacement using [email or web address] pinless navigation. ASSISTANTS: Dr. Braden Guerrero and Noa Tenorio PA-C also assisted. ANESTHESIA: The patient did have a general anesthetic as well as preoperative block. COMPLICATIONS: There were no complications. IMPLANTS: To the right knee, this is a [employer] total knee system. The femur is a size 5 cruciate retaining femur, the tibial base plate is a size 4 primary tibial base plate. We used a 4 x 11 mm CS X3 poly and for the patella, we used a 27 x 8 symmetric X3 patella. DISPOSITION: She did go to recovery room in stable condition. INDICATIONS: This is a 77-year-old active female, comes in complaining of unrelenting knee pain as well as feeling of instability secondary to a valgus deformity. She has failed nonoperative treatment at this time, wished to have the knee replaced. PROCEDURE IN DETAIL: After all appropriate consent forms were explained and signed, the patient was taken back to the operating room and at this time was given general anesthetic. Once the level of anesthesia was appropriate, a well-padded tourniquet was placed on the right leg, and the leg was then prepped and draped in standard surgical fashion. The limb was exsanguinated and tourniquet taken up to 300 mmHg. Midline incision was made with a 10 blade down through the skin and subcutaneous tissue. Bovie electrocautery was used to coagulate any brisk venous bleeding. A new blade was used to make a medial parapatellar arthrotomy. Small subperiosteal release was performed medially and excess fat pad was removed. The knee was flexed up to gain access to the femur. The femur was navigated and distal femoral resection was made. Epicondylar access was used to align our sizing jig and this was pinned in place. We sized our femur to be a 5. 4:1 cutting block was applied and pinned. Anterior and posterior chamfer cuts were then made. We navigated out our proximal tibia and made our proximal tibial resection. Spreaders were used to remove any posterior osteophytes off the back of the femur as well as remaining meniscal tissue. A long alignment yelena was then used to achieve correct rotation of our tibial baseplate and a size 4 was chosen. This was pinned in place. We trialed the polyethylene and a 4 x 11 mm CS X3 polyethylene gave us full extension and good stability throughout range of motion. Two towel clips and a saw were used to cut our patella. Three lug nuts were drilled and 27 x 8 symmetric X3 patella was trialed which sat nicely in the trochlear groove. We then drilled our femur and punched our tibia. All components were removed. The knee was thoroughly irrigated and dried. Cement was mixed into the cement gun on the back table. Components were then placed. The knee was held out in full extension until the cement had dried. All excess bone cement was removed. Multiple #2 Vicryl stitches as well as a Quill were used to close our extensor mechanism. 0 Quill followed by a running Monoderm was then used to close the skin. Surgicel glue was then used on the skin. Once this had dried, soft tissue dressing was applied to the limb, tourniquet was let down, and the toes pinked up nicely. The patient was then awakened and taken to the recovery room in stable condition. All counts were correct at the end of the case. The patient did receive preoperative IV antibiotics. The patient was injected with Exparel for postoperative pain relief. Job ID: [id number]
[2018-04-19] MEDS: Fluticasone Propionate Nasal Spray 16 gm Bottle NASAL SCH (13:40)
[2018-04-19] MEDS: Citalopram 10 MG TAB PO SCH (13:41)
[2018-04-19] MEDS: Polyethylene Glycol 3350 17 GM Packet PO SCH (20:38)
[2018-04-20] MEDS: Sodium Chloride 0.9% 1,000 ML IV SCH (00:57)
[2018-04-20] MEDS: Acetaminophen/Codeine 30-300mg Tablet PO PRN (06:30)
[2018-04-20 07:51] LABS: Hemoglobin 8.9 g/dL (12.0-16.0); Mean Corpuscular HGB CONC 33.2 g/dL (32.0-36.0); Mean Corpuscular Hemoglobin 36.5 pg (27.0-31.0); Platelet Count 122 thou/uL (130-400); RBC Distribution Width 13.7 % (11.5-14.5); Red Blood Cell (RBC) Count 2.45 mill/uL (4.20-5.40); White Blood Cell (WBC) Count 2.8 thou/uL (4.8-10.8)
[2018-04-20] MEDS: Ferrous Gluconate 324 MG TAB PO SCH (08:35)
[2018-04-20] MEDS: Metoprolol Tartrate 25 MG TAB PO SCH (08:35)
[2018-04-20] MEDS: Senokot S 8.6-50 MG TAB PO SCH (08:36)
[2018-04-20] MEDS: Furosemide 20 MG TAB PO SCH (08:36)
[2018-04-20] MEDS: Multivitamin W/ Minerals 1 TAB PO SCH (08:36)
[2018-04-20] MEDS: Potassium Chloride 10 MEQ TAB PO SCH (08:36)
[2018-04-20] MEDS: CeleCOXIB 100 MG CAP PO SCH (08:36)
[2018-04-20] MEDS: Aspirin 81 mg Enteric Coated Tablet PO SCH (08:36)
[2018-04-20] MEDS: Citalopram 10 MG TAB PO SCH (10:14)
[2018-04-20] MEDS: Fluticasone Propionate Nasal Spray 16 gm Bottle NASAL SCH (10:14)
[2018-04-20 12:29] VITALS: BP 138/74; TEMP 98.4
== END 2018-04-20 13:49 | disposition home or self-care (01) | DRG 470 ==
LOC: SDC 07:39 → SJJU 13:33
PROVIDERS: ADMIT Orthopaedic Surgery; ATTEND Orthopaedic Surgery
PROC: 0SRC0J9 Replacement of Right Knee Joint with Synthetic Substitute, Cemented, Open Approach (ICD-10-PCS; principal; 2018-04-18)
DX: M17.11 Unilateral primary osteoarthritis, right knee (principal); E87.6 Hypokalemia; I12.9 Hypertensive chronic kidney disease with stage 1 through stage 4 chronic kidney disease, or unspecified chronic kidney disease; N18.2 Chronic kidney disease, stage 2 (mild); I49.5 Sick sinus syndrome; Z86.79 Personal history of other diseases of the circulatory system
CPT/HCPCS: 36415; 80048; 83735; 85027; C1713; C1776; J1100; J2001; J2250; J2405; J2704; J2795; J3010; J3370; J7050; S0020

== ENCOUNTER 2018-11-14 06:58 | Day surgery (SDC) | payer MEDICARE ==
[2018-11-11 15:18] VITALS: BMI 27.6
[2018-11-14 08:13] VITALS: BP 121/70; TEMP 97.4
--- NOTE | 2018-11-14 09:19 | RAD ---
FIVE VIEWS CERVICAL SPINE: COMPARISON: 12/09/2016. HISTORY: Cervical radiculopathy. FINDINGS: AP projection demonstrates multilevel facet arthropathy. Open mouth projection is suboptimal. Lateral neutral image demonstrates multilevel spondylolisthesis. C2-C3: Neutral 2.8 mm anterolisthesis; flexion 2.5 mm anterolisthesis; extension 2 mm anterolisthesi s. C3-C4: Neutral 3.4 mm anterolisthesis; flexion 2.9 mm anterolisthesis; extension 2.2 mm. C4-C5: Neutral no spondylolisthesis; flexion 2.1 mm retrolisthesis; extension 2.8 mm retrolisthesis. C5-C6: Neutral 2.1 mm retrolisthesis; flexion 1.8 mm retrolisthesis; extension 1.7 mm retrolisthesis . C7-T1: Neutral 2.4 mm of anterolisthesis. Limited evaluation of the cervicothoracic junction upon f lexion and extension. Cervical spine vertebral height is maintained. No fracture. No prevertebral soft tissue swelling. Severe loss of disk space height at C5-C6 and C6-C7. Limited evaluation of the predental space. IMPRESSION: 1. Extensive degenerative changes of the cervical spine as detailed above. 2. Extensive spondylolisthesis. POS: [facility]
--- NOTE | 2018-11-14 09:29 | RAD ---
LUMBAR SPINE 4 VIEWS: HISTORY: Lumbar radiculopathy. FINDINGS: AP, lateral neutral, lateral flexion and extension views demonstrate 5 lumbar-type vertebral bodies. There is levoscoliosis with leftward rotation. In the neutral position, there is 2.8 mm anterolisth esis of L5 upon S1. Upon flexion, there is 3 mm anterolisthesis. Upon extension, there is 2.5 mm an terolisthesis. There is vacuum disk phenomenon at L5-S1 and L2-L3. IMPRESSION: Excessive degenerative changes of the lumbar spine. POS: [facility]
[2018-11-14] MEDS ORDERED: Iopamidol-M 300 61% 15 ML VIAL ONE (10:43)
--- NOTE | 2018-11-14 10:57 | RAD ---
CERVICAL LUMBAR MYELOGRAM: HISTORY: Cervical radiculopathy. Lumbar radiculopathy. EXPOSURE: 1.3 minutes. 416.8 mGy*^m2. FINDINGS: Successful lumbar puncture for cervical lumbar myelogram. A total of 9 cc of Isovue-M 300 contrast w as administered intrathecally. No immediate or postprocedure complication. TECHNIQUE: The patient's back was evaluated. The L1-L2 level is deemed appropriate. The skin was prepped and d raped in sterile fashion. 1% Lidocaine, buffered with sodium bicarbonate, was used for local anesthe natali. Under fluoroscopic guidance, a 22-gauge spinal needle was advanced into the CSF space. Here is prompt flow of clear CSF into the hub of the needle, a total of 9 cc of Isovue-M 300 contrast was ad ministered intrathecally. The patient tolerated the procedure well. No immediate or postprocedure c omplication. IMPRESSION: Successful lumbar puncture for cervical and lumbar myelogram. POS: [facility]
--- NOTE | 2018-11-14 11:06 | CT ---
POST MYELOGRAM LUMBAR SPINE CT: Date: 11/14/18 COMPARISON: 12/09/16. HISTORY: Lumbar radiculopathy. FINDINGS: Stable leftward curvature of the lumbar spine. Redemonstration of vacuum disc phenomenon at T11-T12, L1-L2, L2-L3, L3-L4, and L4-L5. Lumbar spine vertebral body height is maintained. No fracture. Symmetric attenuation of the paraspinal muscles. Visualized alimentary canal is unremarkable. Conus medullaris terminates at the T12-L1 disc space. T11-T12: Stable posterior disc protrusion with mild central canal stenosis. Neural foramina are mode rately narrowed. T12-L1: Minimal left and right paracentral disc bulges. No significant central canal stenosis. Neura l foramina are patent. L1-L2: Vacuum disc phenomenon. Broad based disc bulge, ligamentum flavum thickening, and facet hyper trophy result in moderate central canal stenosis. Moderate right foraminal narrowing. Mild left art inal narrowing. L2-L3: Vacuum disc phenomenon. Broad based disc bulge, ligamentum flavum thickening, and facet hyper trophy result in mild to moderate central canal stenosis. Moderate right and mild left foraminal narr owing. L3-L4: Vacuum disc phenomenon. Broad based disc bulge, ligamentum flavum thickening, and facet hyper trophy result in moderate central canal stenosis. Mild right and moderate left foraminal narrowing. L4-L5: Vacuum disc phenomenon. Broad based disc bulge, ligamentum flavum thickening, and facet hyper trophy result in mild central canal stenosis. Mild right and severe left foraminal narrowing. L5-S1: Vacuum disc phenomenon. No significant central canal stenosis. Moderate right and severe left foraminal narrowing. IMPRESSION: Extensive degenerative changes of the lumbar spine as described above. POS: [facility]
--- NOTE | 2018-11-14 12:04 | CT ---
POST MYELOGRAM CERVICAL SPINE CT: HISTORY: Cervical radiculopathy. COMPARISON: 12/09/2016. FINDINGS: There is stable degenerative change in the right C1-C2 articulation, at the level of the lateral mass . Odontoid process is intact. There is multilevel facet arthropathy with facet hypertrophic change. There is 3.6 mm of anterolisthesis of C2 upon C3, 2.7 mm anterolisthesis of C3 upon C4, 3.5 mm ante rolisthesis of C7 upon T1. Cervical spine vertebral body height is maintained. There is no fracture . Soft tissue neck structures are unremarkable. There is mass effect upon the posterior right supraglo ttic larynx secondary to medial deviation of the right internal carotid artery. Upper mediastinum and lung apices are unremarkable. Vertebral body heights are maintained. No fracture. C2-C3: Broad-based disk bulge abuts the thecal sac. There is preservation of the ventral subarachno id space. Mild central canal stenosis. Degenerative changes in bilateral uncovertebral joints and f acet hypertrophy is noted. No significant neural foraminal narrowing. C3-C4: There is a broad-based disk-osteophyte complex which abuts the ventral thecal sac and ventral cord. Minimal flattening of the ventral cod. Mild central canal stenosis. Right neural foramen is patent. Moderate left foraminal narrowing due to uncovertebral and facet hypertrophy. C4-C5: Broad-based disk-osteophyte complex abuts the thecal sac. Thee is deformity of the midline a nd left aspect of the cervical cord, similar to the previous examination. Mild to moderate central c anal stenosis. Moderate right foraminal narrowing due to uncovertebral and facet hypertrophy. Mild left foraminal narrowing due to uncovertebral hypertrophy. C5-C6: Broad-based disk-osteophyte complex with a central components abuts the thecal sac. Subarach noid space is still maintained. Mild central canal stenosis. Moderate to severe right foraminal antolin rowing due to uncovertebral and facet hypertrophy. Mild left foraminal narrowing due to uncovertebra l and facet hypertrophy. C6-C7: Broad-based disk-osteophyte complex abuts the thecal sac. No significant central canal steno sis. Mild bilateral foraminal narrowing due to uncovertebral hypertrophy. C7-T1: No significant central canal stenosis. Neural foramen are patent. IMPRESSION: Multilevel degenerative changes of the cervical spine as described above. When compared to the previ ous examination, no significant change. POS: [facility]
== END 2018-11-14 10:50 | disposition home or self-care (01) ==
LOC: RAD 06:58
PROVIDERS: ATTEND Physician Assistant Surgical
PROC: B01B1ZZ Fluoroscopy of Spinal Cord using Low Osmolar Contrast (ICD-10-PCS; principal; 2018-11-14)
DX: M48.02 Spinal stenosis, cervical region (principal); M48.04 Spinal stenosis, thoracic region; M48.061 Spinal stenosis, lumbar region without neurogenic claudication; M51.24 Other intervertebral disc displacement, thoracic region; M54.12 Radiculopathy, cervical region; M54.16 Radiculopathy, lumbar region; M19.90 Unspecified osteoarthritis, unspecified site; E78.5 Hyperlipidemia, unspecified; I10 Essential (primary) hypertension; F32.9 Major depressive disorder, single episode, unspecified; F41.9 Anxiety disorder, unspecified; Z95.0 Presence of cardiac pacemaker; Z88.5 Allergy status to narcotic agent; Z79.51 Long term (current) use of inhaled steroids; Z79.899 Other long term (current) drug therapy
CPT/HCPCS: 62305; 72050; 72110; 72126; 72132; Q9967

== ENCOUNTER 2019-03-14 12:09 | Observation (INO) | payer MEDICARE ==
[2019-03-14] MEDS ORDERED: Diltiazem 125 MG/25 ML ONE (12:16)
[2019-03-14 12:56] LABS: #Lymphocytes 0.9 thou/uL (1.20-3.40); #Monocytes 0.2 thou/uL (0.11-0.59); #Neutrophils 2.7 thou/uL (1.40-6.50); %Basophils 1.3 % (0.0-1.0); %Eosinophils 0.1 % (0.0-10.0); %Lymphocytes 22.4 % (21.0-51.0); %Monocytes 5.6 % (0.0-10.0); %Neutrophils 70.5 % (42.0-75.0); Hemoglobin 10.6 g/dL (12.0-16.0); Mean Corpuscular HGB CONC 34.4 g/dL (32.0-36.0); Mean Corpuscular Hemoglobin 35.5 pg (27.0-31.0); Mean Platelet Volume 9.3 fL (7.4-10.4); Platelet Count 94 thou/uL (130-400); RBC Distribution Width 14.6 % (11.5-14.5); Red Blood Cell (RBC) Count 2.98 mill/uL (4.20-5.40); White Blood Cell (WBC) Count 3.8 thou/uL (4.8-10.8)
[2019-03-14 13:02] LABS: INR-International Normal Ratio 1.3; PTT 37.2 SEC (22.9-36.1); Prothrombin Time 15.8 SEC (12.0-14.7)
[2019-03-14 13:29] LABS: ALT (SGPT) 14 U/L (8-55); AST (SGOT) 22 U/L (5-34); Albumin 4.2 g/dL (3.4-4.8); Alkaline Phosphatase 85 U/L (40-110); Anion Gap 12 mmol/L (10-20); BUN (Urea Nitrogen) 15 mg/dL (9.8-20.1); Bilirubin, Total 0.9 mg/dL (0.2-1.2); Calc. Creatinine Clearance 0 mL/min (70-130); Calcium 9.2 mg/dL (7.8-10.44); Carbon Dioxide 25 mmol/L (23-31); Chloride 106 mmol/L (98-107); Estimated GFR-MDRD 83; Globulin 2.5 g/dL (2.4-3.5); Glucose 108 mg/dL (83-110); Potassium 4.1 mmol/L (3.5-5.1); Protein, Total 6.7 g/dL (6.0-8.3); Sodium 139 mmol/L (136-145)
--- NOTE | 2019-03-14 13:29 | CT ---
CT BRAIN WITHOUT IV CONTRAST: HISTORY: Headache. FINDINGS: No focal mass or midline shift. No evidence for acute hemorrhage. Small hyperdense foci noted in the right and left optic globe regions, in the periphery. These are of uncertain etiology or significance . IMPRESSION: 1. No significant acute intracranial process. 2. No mass or bleed. POS: [facility]
--- NOTE | 2019-03-14 13:30 | RAD ---
CHEST 1 VIEW: Date: 03/14/19 HISTORY: Dyspnea. COMPARISON: 10/25/17. FINDINGS: Heart size is within normal limits. Calcified granuloma in the right lower lobe, stable. Left ICD. No confluent pneumonia, overt edema, or pleural effusion. IMPRESSION: No significant acute process. Stable from prior study. POS: [facility]
[2019-03-14] MEDS ORDERED: Ibuprofen 200 MG TAB ONE (14:13)
[2019-03-14] MEDS ORDERED: Ondansetron ODT 4 MG TAB PO PRN (15:43)
[2019-03-14] MEDS ORDERED: Metoprolol Tartrate 25 MG TAB PO SCH (16:00)
[2019-03-14] MEDS ORDERED: Metoprolol Tartrate 25 MG TAB ONE (16:12)
--- NOTE | 2019-03-14 17:02 | HP ---
PRIMARY CARE PHYSICIAN: Dr. Aceves. GLASS POLISHER: Dr. Amezcua. NEUROSURGEON: Dr. Vallejo. CHIEF COMPLAINT: Fatigue, nausea, dizziness, near-syncope since yesterday. Referral to ED from primary care physician's office. HISTORY OF PRESENT ILLNESS: This is an 78-year-old female with past medical history of paroxysmal atrial fibrillation, status post permanent pacemaker implantation; hypertension; osteoarthritis with chronic cervical neck pain, awaiting neurosurgical intervention, who was started by her waste specialist one week ago on twice daily oral flecainide and oral Eliquis after pacemaker interrogation suggested atrial fibrillation, who has been compliant with medications all week and yesterday voluntarily discontinued her flecainide after feeling unwell with complaints of strange sensation, fatigue, nausea, and dizziness that persisted into today, associated with lightheadedness that lasted at her primary care physician's office today during routine evaluation and felt near faint while there, prompting ER evaluation via EMS. The patient was noted to be in atrial fibrillation, rapid ventricular response 140s and was administered IV Cardizem push en route to the ER and initiated on IV Cardizem drip with improved ventricular rates to 80s. Serial cardiac biomarkers negative x1. The patient is admitted for further observation. She reports having an echocardiogram done in waste specialist's office two weeks ago, which was unremarkable and a preoperative stress test one week ago, which was also unremarkable. She denies any recent illnesses and denies any changes in functional status. She notes her aspirin, Lasix, and hydrochlorothiazide were all stopped last week, but she has been compliant on oral Lopressor 12.5 mg twice daily. Her last dose of flecainide was yesterday morning and her last dose of Lopressor and Eliquis was yesterday evening as she had blood work this morning and has not taken any of her medications. She offers no other acute complaints at this time except for improving headaches after being administered oral Motrin. Her nausea has resolved. Noncontrast CT was obtained in the ER, which was negative. PAST MEDICAL HISTORY: Paroxysmal atrial fibrillation, status post permanent pacemaker implantation and prior radiofrequency ablation and pulmonary vein isolation, on Lopressor 12.5 mg twice daily and recent initiation on both flecainide and Eliquis one week ago by waste specialist; hypertension; osteoarthritis; and chronic cervical neck pain. PAST SURGICAL HISTORY: Permanent pacemaker limitation, radiofrequency ablation with pulmonary vein isolation, cholecystectomy, tonsillectomy, bilateral shoulder surgery, and bilateral carpal tunnel syndrome. SOCIAL HISTORY: The patient is , lives at home with her spouse. She is ambulatory without assistive devices. She denies any tobacco use. She notes social alcohol intake, but does not drink any wine for over one week. ALLERGIES: LISTED TO CODEINE. REVIEW OF SYSTEMS: Pertinent positives noted as per HPI. Remainder of review of systems negative. MEDICATION: Reviewed as per admission medication reconciliation. FAMILY HISTORY: Notable for unspecified heart problems in the patient's father. The patient's mother at the age of 89. PHYSICAL EXAMINATION: VITAL SIGNS: T-max afebrile, temperature 98.3, pulse 81, blood pressure 125/70, oxygen saturation 98% on room air, and respirations of 18 to 20. GENERAL APPEARANCE: This is an elderly female, who is awake, alert, oriented, coherent, lucid, and not in any obvious distress. HEENT: Normocephalic and atraumatic. No facial asymmetry. Pupils are equally round and reactive. Extraocular muscles are intact. NECK: Supple. CARDIOVASCULAR: S1 and S2. Regularly regular. No harsh murmurs. No reproducible chest wall tenderness to palpation. LUNGS: Bilateral equal air entry. Clear to auscultation. Nonlabored respirations. Symmetrical chest expansion. No wheezing or rales. ABDOMEN: Soft, nontender, and nondistended. EXTREMITIES: No appreciable edema in both lower extremities. No cyanosis or deformity. SKIN: Warm to touch without rash or pallor or abrasion. LABORATORY VALUES: Sodium 138, potassium 4.1, chloride 106, bicarb 25, glucose 108, BUN and creatinine 15/0.68. LFTs unremarkable. Troponin negative x1. INR 1.3. WBC 3.8, H and H 10.6 and 30.8, platelets 94. IMAGING: Noncontrast head CT reveals no significant intracranial process. No mass or bleed. ASSESSMENT: 1. Paroxysmal atrial fibrillation with rapid ventricular response. The patient will be admitted as observation status and placed on telemetry monitoring. She received IV Cardizem push en route to the emergency room, has been started on IV Cardizem drip with notable ventricular rate control, still in atrial fibrillation. She is compliant with home dose oral Lopressor 12.5 mg twice daily, but has not taken a dose this morning and will resume. She was started one week ago on oral flecainide by her established waste specialist, but felt unwell with it and voluntarily discontinued yesterday morning and certainly this may be proarrhythmic given her current symptoms. We will continue oral Lopressor 12.5 mg twice daily and wean off IV Cardizem drip. The patient may require up titration of oral AV torie blocking agents and perhaps consideration of digoxin or alternative antiarrhythmic agents. Serial cardiac biomarkers are unremarkable and furthermore, the patient had a stress test reported negative last week in her waste specialist's office, as well as an echocardiogram unremarkable two weeks prior. We will resume Eliquis at this time cognizant of pancytopenia. Noted the patient has permanent pacemaker implantation as well as prior history of radiofrequency ablation and pulmonary vein isolation. 2. Pancytopenia of unspecified etiology. The patient will require outpatient followup with crotch breaker regarding this. She reports recent preoperative blood test by neurosurgeon and her primary care physician, both noting unspecified abnormalities. Review of lifetime records notes prior evidence of pancytopenia. Caution with oral precaution with direct oral anticoagulant and NSAID use for bleeding. Noncontrast head CT was unremarkable. 3. Hypertension, benign. We will restart oral Lopressor for atrial fibrillation, ventricular rate control. The patient was recently discontinued of Lasix and hydrochlorothiazide by her waste specialist. 4. Chronic cervical neck pain. The patient is following with neurosurgeon as outpatient. She was being evaluated for neurosurgical intervention, but apparently, this has been postponed due to recent abnormal labs. She is noted to have pancytopenia. 5. Deep venous thrombosis prophylaxis: Eliquis 5 mg twice daily. DISPOSITION: The patient will be admitted to telemetry observation unit. Anticipate less than 24 hours stay. CODE STATUS: Full code. Plan of care discussed with patient and the patient's ER nurse. Job ID: [id number]
[2019-03-14 17:59] LABS: Troponin I Less than 0.010 ng/mL (< 0.028)
[2019-03-14 18:14] VITALS: BMI 28.4
[2019-03-14 20:00] LABS: Troponin I Less than 0.010 ng/mL (< 0.028)
[2019-03-14] MEDS: Apixaban 5 MG TAB PO SCH (21:04)
[2019-03-14] MEDS: Acetaminophen 325 MG TAB PO PRN (21:19)
[2019-03-14] MEDS ORDERED: Ibuprofen 200 MG TAB PO SCH (21:45)
[2019-03-14] MEDS ORDERED: Gabapentin 300 MG CAP PO SCH (22:00)
[2019-03-14] MEDS: Metoprolol Tartrate 25 MG TAB PO SCH (23:13)
[2019-03-15] MEDS: Acetaminophen 325 MG TAB PO PRN (08:25)
[2019-03-15] MEDS: Apixaban 5 MG TAB PO SCH (08:26)
[2019-03-15] MEDS: Metoprolol Tartrate 25 MG TAB PO SCH (08:26)
--- NOTE | 2019-03-15 10:15 | PDOC.HOSPP ---
- Subjective Encounter Date: 03/15/19 Encounter Time: 10:13 Subjective: fine - Objective Vital Signs & Weight: Vital Signs (12 hours) Temp Pulse Resp BP Pulse Ox 03/15/19 07:43 98.1 F 90 20 116/69 98 03/15/19 04:00 97.7 F 89 16 109/57 L 95 03/14/19 23:00 98.2 F 78 15 102/54 L 100 Weight Weight 160 lb 8 oz I&O: 03/14/19 03/15/19 03/16/19 06:59 06:59 06:59 Intake Total 400 Output Total 400 Balance 0 Result Diagrams: 03/14/19 12:32 03/14/19 12:32 Hospitalist ROS - Medication Medications: Active Medications Generic Name Dose Route Start Last Admin Trade Name Freq PRN Reason Stop Dose Admin Acetaminophen 650 mg 03/14/19 15:43 03/15/19 08:25 Tylenol PO 650 mg Q4H PRN Administration Headache/Fever/Mild Pain (1-3) Apixaban 5 mg 03/14/19 21:00 03/15/19 08:26 Eliquis PO 5 mg BID GIL Administration Metoprolol Tartrate 12.5 mg 03/14/19 21:00 03/15/19 08:26 Lopressor PO 12.5 mg BID GIL Administration Sodium Chloride 10 ml 03/15/19 09:00 03/15/19 08:26 Flush - Normal Saline IVF 10 ml Q12HR GIL Administration - Exam General Appearance: awake alert Neck: no JVD Heart: RRR, no murmur Respiratory: CTAB Gastrointestinal: soft, normal bowel sounds Extremities: no edema Hosp A/P (1) Atrial fibrillation with rapid ventricular response Code(s): I48.91 - UNSPECIFIED ATRIAL FIBRILLATION Status: Acute (2) Pacemaker Code(s): Z95.0 - PRESENCE OF CARDIAC PACEMAKER Status: Chronic (3) Hypertension Code(s): I10 - ESSENTIAL (PRIMARY) HYPERTENSION Status: Chronic Qualifiers: Hypertension type: essential hypertension Qualified Code(s): I10 - Essential (primary) hypertension - Plan off cardizem, in paced rhythm, discussed with Dr Amezcua
[2019-03-15 15:48] VITALS: BP 120/73; TEMP 98.9
--- NOTE | 2019-03-15 16:15 | CON ---
DATE OF CONSULTATION: 03/15/2019 REASON FOR CONSULTATION: AFib, RVR. PRIMARY GLOVE TURNER AND FORMER: Edgardo Amezcua MD HISTORY OF PRESENT ILLNESS: Mrs. Stafford is a very pleasant 78-year-old white female, who comes to the hospital for not feeling well. She was not feeling well, went to see her primary care doctor. She had a heart rate in the 140, so she was sent to the ER. She was found to be in AFib, RVR. She was started on a Cardizem drip, and eventually, she went back to the 80s of an atrially paced rhythm. She feels much better on my evaluation. She has a history of paroxysmal atrial fibrillation. 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 This was after monitor showed 3-second pauses, which were very symptomatic and presyncopal, and had several runs of SVT. She had a pacemaker placed, and after this, she was found to have episodes of atrial flutter and atrial fibrillation, so Dr. Willingham evaluated her and she underwent atrial flutter and apparently AFib ablation. She had been in sinus ever since. More recently, she started to have episodes of atrial fibrillation again, so we started flecainide and Eliquis for stroke prophylaxis. She states that she did not like the way flecainide made her feel. She was nauseated and felt weak all the time, so she actually stopped her flecainide just a day ago. She only missed 1 dose before she came into the hospital. She has remained on Eliquis. Currently, she is feeling much better. PAST MEDICAL HISTORY: 1. Paroxysmal AFib. 2. Sick sinus syndrome status post pacemaker placement. 3. Atrial flutter in the past, status post flutter ablation. 4. Hypertension. 5. Osteoarthritis. 6. Chronic cervical neck pain. PAST SURGICAL HISTORY: 1. Permanent pacemaker placement. 2. AFib and atrial flutter ablation. 3. Cholecystectomy. 4. Tonsillectomy. 5. Bilateral shoulder surgery. 6. Bilateral carpal tunnel syndrome. SOCIAL HISTORY: No alcohol, tobacco, or drugs. OUTPATIENT MEDICATIONS: Include, 1. Ibuprofen. 2. Gabapentin. 3. Eliquis 5 mg b.i.d. 4. Flonase. 5. Multivitamin. 6. Metoprolol 12.5 mg b.i.d. 7. Flecainide 50 mg b.i.d., this has been stopped since. ALLERGIES: 1. CODEINE. 2. HYDROCODONE. 3. TRAMADOL. 4. FLECAINIDE. WE WILL ADD THIS TO HER ALLERGY LIST SHE HAD AN ADVERSE REACTION, NOT REALLY AN ALLERGY. REVIEW OF SYSTEMS: Twelve-point review of systems was done and was all negative unless stated in the history of present illness. FAMILY HISTORY: Noncontributory. PHYSICAL EXAMINATION: VITAL SIGNS: Temperature 97.9, pulse 89, respiratory rate 16, saturations 94% on room air, blood pressure 122/71. GENERAL: Awake, alert, and oriented x3, in no distress. HEENT: Normocephalic and atraumatic. NECK: Supple. LUNGS: Clear. CARDIOVASCULAR: S1 and S2. No S3 or S4. No murmurs. ABDOMEN: Soft. Positive bowel sounds. EXTREMITIES: No edema. SKIN: Warm and dry. LABORATORY DATA: Laboratory work was reviewed. She is pancytopenic with a white count of 3.8, hemoglobin of 10.6, platelet count of 94. Coags were normal. Chemistries were unremarkable. Troponin was undetectable x3. IMAGING STUDIES: EKG was reviewed, AFib, RVR, now she is in atrially paced rhythm, ventricular sensed rhythm. ASSESSMENT: 1. Paroxysmal atrial fibrillation. 2. Sick sinus syndrome status post pacemaker placement. PLAN: 1. She will stop flecainide and start Multaq today at 400 mg b.i.d. I will provide samples and a prescription. Hopefully, this will be too expensive for her. 2. Continue Eliquis for stroke prophylaxis. 3. If she were to require a repeat ablation, she may need a Watchman device as well as her risk of bleeding is higher due to pancytopenia. 4. She maybe discharged home today. 5. I provided with samples of Multaq to her bedside and her prescription. I am scheduled to see her back in April. We will just keep this scheduled appointment. Thank you for letting us participate in the care of your patient. We will sign off. Please call with any questions. Job ID: [id number]
--- NOTE | 2019-03-15 16:37 | DIS ---
DATE OF ADMISSION: 03/14/2019 DATE OF DISCHARGE: 03/15/2019 PRIMARY CARE PROVIDER: Tiago Cotton. DISPOSITION: Discharged home. DIAGNOSES: Atrial fibrillation with rapid ventricular response, presence of cardiac pacemaker, hypertension, and neck pain, chronic. DISCHARGE MEDICATIONS: 1. New Multaq 400 mg p.o. b.i.d. 2. Old metoprolol 12.5 mg p.o. b.i.d. 3. Eliquis 5 mg p.o. b.i.d. 4. Gabapentin 300 mg p.o. at bedtime. 5. Ibuprofen 400 mg p.o. b.i.d. ALLERGIES: CODEINE, HYDROCODONE, AND TRAMADOL. DIET: Heart healthy. CODE STATUS: Full. PENDING AT TIME OF DISCHARGE: Nothing. HOSPITAL COURSE: The patient brought to the hospital, atrial fib rapid ventricular response, put on IV Cardizem in the ER. This morning, the patient was in paced rhythm off the Cardizem. Dr. Amezcua was consulted. The patient was given Multaq to start 400 mg twice a day. She is to follow up with Dr. Amezcua per his directions. Follow up with her PCP in 3 days. Pertinent laboratory; white count 3.8, hemoglobin 10.6, and platelet count 94,000. Comprehensive metabolic profile normal. Cardiac enzyme normal x3. The patient has already begun outpatient referral for pancytopenia workup. Vital signs were stable at the time of discharge. She was in a paced rhythm. Blood pressure 122/71, room air saturations 94 to 98, and respiratory rate 16 to 20. Job ID: [id number]
[2019-03-15] MEDS ORDERED: Gabapentin 300 MG CAP PO SCH (21:00)
== END 2019-03-15 16:47 | disposition home or self-care (01) ==
LOC: ERS 12:09 → 2SW 18:02
PROVIDERS: ADMIT Hospitalist; ATTEND Hospitalist
DX: I48.0 Paroxysmal atrial fibrillation (principal); I10 Essential (primary) hypertension; G89.29 Other chronic pain; M54.2 Cervicalgia; D61.818 Other pancytopenia; M19.90 Unspecified osteoarthritis, unspecified site; Z88.5 Allergy status to narcotic agent; Z95.0 Presence of cardiac pacemaker
CPT/HCPCS: 70450; 71045; 80053; 84484 ×2; 85025; 85610; 85730; 93005; 96365; 96366; 99285; G0378 ×3; 36415

== ENCOUNTER 2019-04-13 08:30 | Day surgery (SDC) | payer MEDICARE ==
[2019-04-12 14:43] VITALS: BMI 26.2
[2019-04-13 10:02] VITALS: BP 127/71; TEMP 99.3
--- NOTE | 2019-04-13 13:51 | CT ---
CT-guided random bone marrow biopsy: 04/13/2019 HISTORY: 78-year-old female with leukocytopenia, anemia, and thrombocytopenia. TECHNIQUE: Signed informed consent obtained. Patient placed prone on CT table. Procedure performed using step CT guidance. Skin posterior to right PSIS prepped and draped in usual sterile fashion. 25-gauge needle used to apply buffered lidocaine superficially, then to the periosteum of the PSIS. 11-gauge o uter cannula with trocar-stylette advanced through posterior osseous cortex manually. Bone marrow fluid aspiration with 2 syringes, first one yielding 3 mL, second one yielding 7 mL, as requested by laboratory equipment cleaner. After removal of stylette, the cannula was connected to the [email or web address] power drill, and was thrust deep into the right ilium conditional 3.5 cm, and removed, yielding core bone s pecimen plug, which was given to the electronic test technician. Compression was held at the puncture site. Patient tolerated procedure well. No complications. IMPRESSION: Technically successful 11-gauge random bone marrow biopsy.
== END 2019-04-13 12:15 | disposition home or self-care (01) ==
LOC: CT 08:30
PROVIDERS: ATTEND Internal Medicine Hematology & Oncology
PROC: 07DR3ZX Extraction of Iliac Bone Marrow, Percutaneous Approach, Diagnostic (ICD-10-PCS; principal; 2019-04-13)
DX: D61.818 Other pancytopenia (principal); I10 Essential (primary) hypertension; F41.9 Anxiety disorder, unspecified; F10.11 Alcohol abuse, in remission; I48.91 Unspecified atrial fibrillation; Z79.01 Long term (current) use of anticoagulants; Z79.899 Other long term (current) drug therapy; Z88.5 Allergy status to narcotic agent; Z95.0 Presence of cardiac pacemaker
CPT/HCPCS: 20225; 77002; 85097; 88184; 88237; 88264; 88280; 88305; 88311; 88313; 88341; 88342

== ENCOUNTER 2019-06-12 09:51 | Observation (INO) | payer MEDICARE ==
[2019-06-12] MEDS ORDERED: Lidocaine 1% PF 5 ML VIAL ONE (10:18)
[2019-06-12] MEDS ORDERED: Ondansetron PF 4 MG/2 ML Vial ONE (10:18)
[2019-06-12] MEDS ORDERED: PROPOFOL 200 MG/20 ML VIAL ONE (10:18)
[2019-06-12] MEDS ORDERED: Rocuronium Bromide 10 MG/ML (10ML VIAL) ONE (10:18)
[2019-06-12 13:23] LABS: INR-International Normal Ratio 1.1; Prothrombin Time 14.2 SEC (12.0-14.7)
[2019-06-12 13:24] LABS: PTT 30.9 SEC (22.9-36.1)
[2019-06-12 13:40] LABS: Anion Gap 15 mmol/L (10-20); BUN (Urea Nitrogen) 23 mg/dL (9.8-20.1); Calc. Creatinine Clearance 70 mL/min (70-130); Calcium 9.6 mg/dL (7.8-10.44); Carbon Dioxide 27 mmol/L (23-31); Chloride 101 mmol/L (98-107); Estimated GFR-MDRD 79; Glucose 105 mg/dL (83-110); Potassium 4.3 mmol/L (3.5-5.1); Sodium 139 mmol/L (136-145)
[2019-06-12 14:03] LABS: Band 1 % (5-11); Hemoglobin 11.4 g/dL (12.0-16.0); Lymphocytes 48 % (21-51); MDiff Complete? YES; Mean Corpuscular Hemoglobin 32.9 pg (27.0-31.0); Mean Corpuscular Volume 96.8 fL (78.0-98.0); Mean Platelet Volume 8.4 fL (7.4-10.4); Monocytes 7 % (0-10); Neutrophil 39 % (42-75); Ovalocytes SLIGHT = 2-5 cells (100X) (0-1/hpf); Platelet Count 138 thou/uL (130-400); Platelet Morphology Comment Appears Adequate; Polychromasia SLIGHT = 2-3 cells (100X) (0-2/hpf); RBC Distribution Width 14.4 % (11.5-14.5); Reactive Lymphocytes 5 % (0-10); Red Blood Cell (RBC) Count 3.45 mill/uL (4.20-5.40); White Blood Cell (WBC) Count 3.4 thou/uL (4.8-10.8)
[2019-06-12] MEDS ORDERED: Fentanyl 100 MCG/2 ML VIAL ONE (15:15)
[2019-06-12] MEDS ORDERED: Heparin 10,000 UNITS/1 ML VIAL ONE ×2 (15:55→19:21)
[2019-06-12] MEDS ORDERED: Lidocaine 1% (PF) 30 ML VIAL ONE (15:55)
[2019-06-12] MEDS ORDERED: Protamine Sulfate 50 MG/5 ML VIAL ONE ×2 (16:09→19:21)
[2019-06-12] MEDS ORDERED: Phenylephrine 10 MG/ML VIAL ONE (16:56)
[2019-06-12] MEDS ORDERED: Isoproterenol 0.2 MG/1 ML AMP ONE (17:07)
[2019-06-12] MEDS ORDERED: Heparin 25,000 units/D5W 500 ML ONE (17:36)
[2019-06-12] MEDS ORDERED: Ketorolac Tromethamine 30 MG/ML VIAL IVP PRN ×2 (19:53→21:09)
[2019-06-12] MEDS ORDERED: Acetaminophen ER (8hr) 650 MG TAB PO PRN (19:54)
[2019-06-12 21:00] VITALS: BMI 26.8
[2019-06-12] MEDS ORDERED: Gabapentin 300 MG CAP PO SCH (21:00)
[2019-06-12] MEDS ORDERED: Promethazine HCl 25 MG/ML VIAL IM/IV PRN (21:08)
[2019-06-12] MEDS ORDERED: Ondansetron HCl/PF 4 MG/2 ML Vial IVP PRN (21:08)
[2019-06-13] MEDS ORDERED: Fluticasone Propionate Nasal Spray 16 gm Bottle NASAL SCH (09:00)
[2019-06-13] MEDS ORDERED: Metoprolol Tartrate 25 MG TAB PO SCH ×2 (09:00)
[2019-06-13] MEDS ORDERED: Hydrochlorothiazide 25 MG TAB PO SCH (09:00)
[2019-06-13] MEDS ORDERED: Vit A,C & E/Lutein/Minerals Tablet PO SCH (09:00)
[2019-06-13] MEDS ORDERED: Apixaban 5 MG TAB PO SCH (09:00)
[2019-06-13] MEDS ORDERED: Prenatal Vitamin 1 TAB PO SCH (09:00)
[2019-06-13] MEDS ORDERED: Gabapentin 100 MG CAP PO SCH (09:00)
--- NOTE | 2019-06-13 10:51 | OP ---
DATE OF PROCEDURE: 06/12/2019 PROCEDURES PERFORMED: Electrophysiology study and radiofrequency ablation. PRIMARY CARE PHYSICIAN: Dr. Tiago Aceves. REASON FOR PROCEDURE: Ms. Stafford is an 78-year-old female with history of persistent atrial fibrillation, status post pulmonary venous isolation procedure on 10/25/2017. She had late recurrence of atrial fibrillation/flutter and tried on Multaq and flecainide, eventually opted for redo pulmonary venous isolation procedure. She has been anticoagulated with Eliquis. DESCRIPTION OF PROCEDURE: The patient received general anesthesia by Anesthesia specialist. After adequate level of sedation achieved, the left and right femoral veins were accessed under ultrasound guidance x2 on both sides. On the left side, an 11-British sheath was used to advance an intracardiac echocardiogram probe to the right atrium, where it was used to monitor the transeptal puncture via pericardial space as well as the catheter manipulation throughout the procedure. Also, on the left side, a Preface long sheath was introduced through which a duodeca catheter was advanced to the CS in the right atrial position. On the right side, initially, two 8-British sheaths were introduced through which a ThermoCool SFST catheter was advanced to the right atrium. 3D map of the right atrium, CS, and His bundle positions were obtained. The HV interval was measured to be 33 milliseconds. Following that, a basic atrial induction study was performed. Burst atrial pacing was able to induce an atrial flutter, which appeared to be typical, isthmus dependent in morphology, but further pace maneuver converted to an atrial fibrillation/atypical flutter. At this point, the right-sided short sheath was exchanged to SL1 transseptal sheaths, which were used to perform a transseptal puncture with the help of powered Pisek transseptal needle after IV heparin was administered in a bolus and drip fashion. The IV heparin was monitored with ACT throughout the procedure and adjusted to keep the ACT levels over 350. Following that, through the SL1 sheath, a ThermoCool SFST catheter and a 20-pole Lasso catheter were advanced to the left atrium. 3D map of the left atrium obtained. Voltage map and activation map proved adequate isolation of the right superior, left superior and left inferior pulmonary veins. The right inferior pulmonary vein was re-isolated. Posterior wall required further isolation, with ablation points were placed at the roof line as well as in the inferior line. Better ablating on the posterior wall, esophageal temperature probe was used to monitor esophageal temperatures and adjusted to avoid excessive esophageal heating. Also, extra irrigation was performed at the heating spots. All 4 pulmonary veins were well isolated and the posterior wall also isolated, which remained isolated during Isuprel administration of 10 mcg. Following that, still frequent atrial flutter episodes were seen. Further ablation lesions were placed in the mitral isthmus area and also in the anterior roof. These eliminated the baseline atypical atrial flutter and typical isthmus dependent atrial flutter morphology mirage. The cycle length was about 230 milliseconds. The catheter was removed from the left side, and the cavotricuspid isthmus ablation was performed eliminating the typical isthmus dependent atrial flutter and nonreducible. The transisthmus time was increased to 150 milliseconds. The transisthmus block demonstrated by longest transisthmus point adjacent to the ablation line. Further burst atrial maneuver still induced atrial fibrillation, which was cardioverted. At this point, IV heparin was also stopped. Pericardial space was rechecked with the intracardiac echo probe as well as seen in electrography. A total of 29 lesions placed at 12 minutes at 40 garay. There was no fluoroscopic change in the cardiac silhouette as noted and the pericardial space revealed no change in a baseline small insignificant pericardial effusion. All catheters were removed from the body. Long sheaths were exchanged to short sheaths, and the short sheaths were closed with Vascade closure device in all 4 puncture sites. Protamine was also used prior to this to reverse IV heparin effect. CONCLUSION: 1. Successful re-isolation of the right inferior pulmonary vein. Right superior , left superior, and left inferior pulmonary veins remained isolated from a prior procedure. 2. Successful re-isolation of posterior wall. 3. Additional ablation lesions in the anterrior roof and inferior krish sithmus area placed to eliminate fractionated intracrardiac electrograms during atrial flutter, which terminated some of the multi-morphology atrial flutters. 4. Typical isthmus dependent atrial flutter was also induced and ablated with the cavotricuspid isthmus ablation. 5. Normal HV interval pre and post procedure. 6. No change in the baseline small pericardial effusion. PLAN: 1. Resume anticoagulation and hold antiarrhythmic agents for now. Monitor for recurrent arrhythmias. 2. Pacemaker function was checked pre and post procedure and remained unchanged. Job ID: [id number] [facility]
--- NOTE | 2019-06-13 11:44 | EKG ---
Test Reason : PREOP Blood Pressure : / mmHG Vent. Rate : 088 BPM Atrial Rate : 115 BPM P-R Int : 000 ms QRS Dur : 086 ms QT Int : 376 ms P-R-T Axes : 000 -16 020 degrees QTc Int : 454 ms Atrial-paced rhythm Abnormal ECG When compared with ECG of 14-MAR-2019 12:17, T wave inversion no longer evident in Inferior leads Nonspecific T wave abnormality no longer evident in Anterolateral leads Confirmed by CURT CAMPBELL, SSnow ([id number]) on 06/13/2019 11:43:46 AM Referred By: [facility] Confirmed By:DR. Kin ELIAS MD
[2019-06-13 11:55] VITALS: TEMP 98.1
--- NOTE | 2019-06-19 11:43 | DIS ---
DATE OF ADMISSION: 06/12/2019 DATE OF DISCHARGE: 06/13/2019 Dictated by Izabel Gongora NP, as scribe for Kavon Willingham MD. PROCEDURES PERFORMED: Include electrophysiology study and radiofrequency ablation. PRIMARY CARE PROVIDER: Dr. Tiago Aceves. HISTORY OF PRESENT ILLNESS: Ms. Stafford is an 78-year-old woman with a history of persistent atrial fibrillation, status post PVAI in September of 2017 with late recurrence, who was unable to tolerate Multaq or flecainide. She elected for a redo PVAI procedure. She was appropriately anticoagulated with Eliquis for at least 30 days prior to the procedure. CONCLUSION: 1. Successful re-isolation of the RIPV. RSPV and left pulmonary veins remained isolated from prior procedure. 2. Successful re-isolation of the posterior wall. 3. CTI flutter ablation performed as this was inducible as well. SUBJECTIVE: Ms. Stafford is feeling well. She has no postablation concerns and is eager to discharge home. REVIEW OF SYSTEMS: 8-point review of systems was negative. OBJECTIVE: VITAL SIGNS: Temperature 98.1, pulse 90, blood pressure 107/67, respirations 18, and oxygen is 97% on room air. GENERAL: The patient is alert and oriented. Speech is clear. Affect is appropriate. Without any jugular venous distention. There is no lymphadenopathy. HEART: with crisp S1 and S2. Left precordial device is found subcutaneously and site is without reaction. LUNGS: Clear to auscultation bilaterally without wheezes, crackles, or rhonchi. ABDOMEN: Soft, nontender without palpable masses, and there are positive bowel sounds throughout. Bilateral groin sites are stable without evidence of hematoma or bleeding complications. EXTREMITIES: Warm and dry to touch. Well perfused without clubbing, cyanosis, or edema. NEUROLOGIC: Grossly intact and nonfocal. Gait is stable. DISCHARGE INSTRUCTIONS: 1. Contact [facility] with any postablation concerns. 2. The patient was provided with [facility] post PVAI ablation discharge packet, addressing restrictions and general guidelines. 3. Continue Eliquis without interruption. 4. Take medications as prescribed and follow up with [facility] in 6 weeks or sooner if symptoms dictate. DISCHARGE MEDICATIONS: 1. Metoprolol tartrate 12.5 mg p.o. b.i.d. 2. Hydrochlorothiazide 25 mg daily. 3. Gabapentin 2 tabs b.i.d. 4. PreserVision AREDS b.i.d. 5. vitamin daily. 6. Flonase as needed. 7. Eliquis 5 mg b.i.d. P.r.n. prescriptions submitted electronically include; 1. Carafate 1 g p.o. q.i.d. x2 weeks. 2. Protonix 40 mg daily x30 days. 3. Prescription given for Lasix 40 mg p.o. p.r.n. to be taken with potassium chloride 20 mEq for shortness of breath, fluid retention, and weight gain. CONDITION AT DISCHARGE: Stable. Job ID: [id number]
== END 2019-06-13 12:25 | disposition home or self-care (01) ==
LOC: CCL 09:51 → IMCU/EMU 18:27
PROVIDERS: ADMIT Internal Medicine Cardiovascular Disease; ATTEND Internal Medicine Cardiovascular Disease
PROC: 02583ZZ Destruction of Conduction Mechanism, Percutaneous Approach (ICD-10-PCS; principal; 2019-06-12)
PROC: 4A023FZ Measurement of Cardiac Rhythm, Percutaneous Approach (ICD-10-PCS; 2019-06-12)
PROC: 4A0234Z Measurement of Cardiac Electrical Activity, Percutaneous Approach (ICD-10-PCS; 2019-06-12)
PROC: 02K83ZZ Map Conduction Mechanism, Percutaneous Approach (ICD-10-PCS; 2019-06-12)
DX: I48.19 Other persistent atrial fibrillation (principal); I48.4 Atypical atrial flutter; I49.5 Sick sinus syndrome; M19.90 Unspecified osteoarthritis, unspecified site; E78.5 Hyperlipidemia, unspecified; Z79.01 Long term (current) use of anticoagulants; Z79.899 Other long term (current) drug therapy; Z88.5 Allergy status to narcotic agent; Z88.8 Allergy status to other drugs, medicaments and biological substances; Z95.0 Presence of cardiac pacemaker
CPT/HCPCS: 76942; 80048; 85025; 85347 ×2; 85610; 85730; 92960; 93005 ×2; 93613; 93623; 93655; 93656; 93662; 96374; C1731; C1732 ×3; C1759; C1769; G0378 ×2; 93010; J0690; J1644; J1885; J2001; J2370; J2405; J2704; J2720; J3010

== ENCOUNTER 2019-07-18 11:13 | Outpatient (CLI) | payer MEDICARE ==
--- NOTE | 2019-07-18 12:33 | ULT ---
LEFT LOWER EXTREMITY VENOUS DUPLEX ULTRASOUND INCLUDING COLOR AND SPECTRAL DOPPLER IMAGING: HISTORY: Left leg swelling and edema. FINDINGS: Exam performed from groin to ankle including visualized greater saphenous, common femoral, superficia l femoral, profunda femoral, popliteal, trifurcation, and posterior tibial vein regions. There is ph asic flow at all levels with normal compressibility and normal augmentation. Complicated popliteal f gamaliel cyst measuring 1.5 x 2.5 x 4.4 cm. In addition, there is a complicated fluid collection extendi ng from the large popliteal cyst medially along the medial posterior aspect of the medial gastrocnemi us muscle region down to the mid calf, evidence for a ruptured popliteal fossa cyst. There is subcut aneous edema. IMPRESSION: 1. No evidence for deep venous thrombosis. Complicated popliteal fossa cyst with some fluid extensi on medially and caudally from the popliteal cyst down to the mid calf, evidence for a ruptured poplit eal fossa cyst. 2. Subcutaneous edema in the medial calf. POS: RRE
== END 2019-07-18 11:14 | disposition home or self-care (01) ==
LOC: ULT 11:13
PROVIDERS: ATTEND Nurse Practitioner Family
DX: M79.89 Other specified soft tissue disorders (principal); R60.0 Localized edema; I82.409 Acute embolism and thrombosis of unspecified deep veins of unspecified lower extremity; M71.22 Synovial cyst of popliteal space [Baker], left knee

== ENCOUNTER 2020-02-07 06:54 | Day surgery (SDC) | payer MEDICARE ==
[2020-02-06 12:22] VITALS: BMI 28.0
[2020-02-07 07:55] VITALS: BP 147/87; TEMP 97.7
--- NOTE | 2020-02-07 08:10 | RAD ---
Exam: 3 views of lumbar spine HISTORY: Low back pain. COMPARISON: 11/14/2018 FINDINGS: 5 lumbar type vertebra. Vacuum disc phenomenon at L1-L2, L2-L3, L3-L4 and L5-S1. Severe los s of disc space height at L2-L3. Spondylolisthesis: L5-S1: Neutral: 2.1 mm of anterolisthesis; flexion 2.6 mm of anterolisthesis; extension 1.8 mm of ant erolisthesis. Hypertrophic changes of the facets at L3-L4, L4-L5 and L5-S1. There are degenerative changes involving the distal thoracic spine and the thoracolumbar junction. IMPRESSION: Grade 1 anterolisthesis of L5 upon S1.
[2020-02-07] MEDS ORDERED: FLU VACC QS2020-21(65YR UP)/PF 240 MCG/0.7 ML SYRINGE IM ONE (09:00)
[2020-02-07] MEDS ORDERED: Acetaminophen 500 MG TAB ONE (09:02)
--- NOTE | 2020-02-07 10:04 | RAD ---
LUMBAR MYELOGRAM: HISTORY: Low back pain. Leg pain. Hip pain. COMPARISON: 11/14/2018. EXPOSURE: 0.9 minutes, 356.4 uGY/m2. FINDINGS: Initial supine shaft repairer radiograph of the lumbar spine demonstrates 5 lumbar-type vertebrae. Vacuum disc phenomenon at L2-L3, L3-L4. Mild leftward curvature of the lumbar spine. Intact bony pelvis. Moderate degenerative change in the left hip. Cholecystectomy clips are identified. Successful lumbar puncture. A total of 9 cc of contrast was administered. TECHNIQUE: Consent obtained to perform a lumbar puncture. The L2-L3 level was deemed appropriate. Skin was prepp ed and draped in sterile fashion. 1% lidocaine, buffered with sodium bicarbonate was used for local anesthesia. Under fluoroscopic guidance, a 22-gauge spinal needle was advanced into the CSF space. Th ere is prompt flow of clear CSF into the hub of the needle. Via a short tubing catheter, a total of 9 cc of contrast (Isovue-200) was administered. No immediate or postprocedure complications IMPRESSION: Successful lumbar puncture for lumbar myelogram. Transcribed Date/Time: 02/07/2020 10:19 AM
--- NOTE | 2020-02-07 10:14 | CT ---
CT LUMBAR MYELOGRAM: INDICATIONS: 79-year-old female with history of low back pain, hip pain and leg pain COMPARISON: CT of the lumbar spine with intrathecal contrast dated November 14, 2018. TECHNIQUE: Multiple CT images were obtained of the lumbar spine following the intrathecal administration of an I sovue 200solution. Please see the lumbar myelogram for details concerning the injection technique. Axial, coronal, and sagittal reformatted images were constructed from the raw data. FINDINGS: Visualized retroperitoneal and paravertebral soft tissues: There are mild vascular calcifications see n involving the visualized vasculature. Gallbladder is surgically absent. No lymphadenopathy or free fluid is evident. There are scattered colonic diverticula. Spinal alignment: There is stable levoscoliosis centered at L3. Spinal instrumentation or postsurgical change: None At L5-S1, there is loss of the normal disc space height with grade 1 anterolisthesis severe left and moderate right facet joint degenerative change. There is vacuum disc phenomenon again seen and L5-S1. There is stable severe left and moderate right neural foraminal narrowing due to the disc oste ophyte complex, loss of disc space height and facet degenerative change.. At L4-5, there is a broad-based disc osteophyte complex with severe left and moderate right facet dilan nt degenerative change. There is stable severe left and stable mild right neural foraminal narrowing. At L3-4, there is a broad-based disc osteophyte complex with facet joint degenerative change inducing stable severe central canal narrowing with moderate to severe right and moderate left neural foraminal At L2-3, there is a disc osteophyte complex with facet hypertrophy inducing mild central canal narrow ing with moderate to severe right and mild left neural foraminal narrowing is stable. At L1-L2, there is a broad-based disc bulge with facet hypertrophy inducing mild central canal narrow ing with moderate right and mild left neural foraminal narrowing. This is stable to the prior exam. At T12-L1, there is a broad-based bulge without appreciable central canal or neural narrowing. At T11-T12, there is a stable broad-based disc bulge inducing mild central canal narrowing without de finite cord impingement. IMPRESSION: 1. Stable severe central canal narrowing at L3-4 with moderate to severe right and moderate left cassidy ral foraminal narrowing. 2. Stable severe left and mild right neural foraminal narrowing at L4-5. 3. Stable severe left and moderate right neural foraminal narrowing at L5-S1. 4. Stable mild central canal narrowing with moderate to severe right and mild left neural foraminal n arrowing at L2-3. 5. Stable mild central canal narrowing with moderate right and mild left neural foraminal narrowing a t L1-L2. 6. Stable mild central canal narrowing at T11-T12.
== END 2020-02-07 09:55 | disposition home or self-care (01) ==
LOC: RAD 06:54
PROVIDERS: ATTEND Surgery
PROC: B01B1ZZ Fluoroscopy of Spinal Cord using Low Osmolar Contrast (ICD-10-PCS; principal; 2020-02-07)
DX: M48.061 Spinal stenosis, lumbar region without neurogenic claudication (principal); M43.17 Spondylolisthesis, lumbosacral region; K57.30 Diverticulosis of large intestine without perforation or abscess without bleeding; M54.5 Low back pain; M25.551 Pain in right hip; M25.552 Pain in left hip; M79.606 Pain in leg, unspecified; M79.651 Pain in right thigh; M79.652 Pain in left thigh; I10 Essential (primary) hypertension; F41.9 Anxiety disorder, unspecified; F32.9 Major depressive disorder, single episode, unspecified; I48.91 Unspecified atrial fibrillation; I49.5 Sick sinus syndrome; E78.5 Hyperlipidemia, unspecified; M35.3 Polymyalgia rheumatica; Z79.52 Long term (current) use of systemic steroids; Z79.899 Other long term (current) drug therapy; Z88.5 Allergy status to narcotic agent; Z88.8 Allergy status to other drugs, medicaments and biological substances; Z95.810 Presence of automatic (implantable) cardiac defibrillator
CPT/HCPCS: 62304; 72100; 72132

== ENCOUNTER 2020-06-06 07:34 | Day surgery (SDC) | payer MEDICARE ==
[2020-06-04 14:35] VITALS: BMI 29.2
[2020-06-06] MEDS ORDERED: Fentanyl 100 MCG/2 ML VIAL ONE ×5 (09:15→13:47)
[2020-06-06] MEDS ORDERED: Ketorolac Tromethamine 30 MG/ML VIAL ONE (09:16)
[2020-06-06] MEDS ORDERED: Famotidine/PF 20 mg/2ml Vial ONE (09:16)
[2020-06-06] MEDS ORDERED: Metoclopramide HCl 10 MG/2 ML VIAL ONE (09:16)
[2020-06-06] MEDS ORDERED: Thrombin 5000 UNITS/5 ML VIAL ONE ×3 (09:55→12:06)
[2020-06-06] MEDS ORDERED: Rocuronium Bromide 10 MG/ML (10ML VIAL) ONE (10:24)
[2020-06-06] MEDS ORDERED: PROPOFOL 200 MG/20 ML VIAL ONE (10:24)
[2020-06-06] MEDS ORDERED: Ondansetron PF 4 MG/2 ML Vial ONE (10:24)
[2020-06-06] MEDS ORDERED: Lidocaine 1% PF 5 ML VIAL ONE (10:24)
[2020-06-06] MEDS ORDERED: PHENYLEPHRINE-NS 100 MCG/ML 10 ML SYRINGE ONE (10:24)
[2020-06-06] MEDS ORDERED: Glycopyrrolate 0.2 MG/ML 5 ML SYRINGE ONE (10:24)
[2020-06-06] MEDS ORDERED: SUGAMMADEX SODIUM 200 MG/2 ML VIAL ONE (12:10)
[2020-06-06] MEDS ORDERED: Promethazine HCl 25 MG/ML VIAL SLOW IVP PRN (13:06)
[2020-06-06] MEDS ORDERED: Promethazine HCl 25 MG/ML VIAL IM PRN (13:06)
[2020-06-06] MEDS ORDERED: Ondansetron HCl/PF 4 MG/2 ML Vial IVP PRN (13:06)
[2020-06-06] MEDS ORDERED: Acetaminophen 325 MG TAB PO PRN (13:09)
[2020-06-06] MEDS ORDERED: Morphine 2 MG/ML VIAL SLOW IVP PRN (13:09)
[2020-06-06] MEDS ORDERED: Milk Of Magnesia 30 ML UDCUP PO PRN (13:09)
[2020-06-06] MEDS ORDERED: Bisacodyl 10 MG SUPP PR PRN (13:09)
[2020-06-06] MEDS ORDERED: Mag-Al 1200 mg/1200 mg/30 ML UDCUP PO PRN (13:09)
[2020-06-06] MEDS ORDERED: tiZANidine HCl 4 MG TAB PO PRN (13:09)
[2020-06-06] MEDS ORDERED: Acetaminophen 500 MG TAB PO PRN (13:12)
[2020-06-06] MEDS ORDERED: oxyCODONE 5 MG TAB PO PRN (13:12)
[2020-06-06] MEDS ORDERED: Fluticasone Propionate Nasal Spray 16 gm Bottle NASAL PRN (13:13)
[2020-06-06] MEDS ORDERED: hydrALAZINE 20 MG/ML VIAL SLOW IVP PRN (13:23)
[2020-06-06] MEDS ORDERED: Gabapentin 100 MG CAP PO SCH (15:00)
[2020-06-06] MEDS: oxyCODONE 5 MG TAB PO PRN (15:55)
[2020-06-06] MEDS: CEFAZOLIN 2 GM in Premix Bag 1 BAG IVPB SCH ×2 (16:00→23:09)
[2020-06-06] MEDS: Sodium Chloride 0.9% 1,000 ML IV SCH (16:04)
[2020-06-06] MEDS: SYSTANE GEL OPHTH DROPS 10 ML EA EYE SCH ×2 (17:52→19:47)
[2020-06-06] MEDS: Metoprolol Tartrate 25 MG TAB PO SCH (19:47)
[2020-06-06] MEDS: Vit A,C & E/Lutein/Minerals Tablet PO SCH (19:47)
[2020-06-06] MEDS ORDERED: Gabapentin 300 MG CAP PO SCH (21:00)
[2020-06-07] MEDS: oxyCODONE 5 MG TAB PO PRN ×2 (01:26→16:20)
[2020-06-07 05:50] LABS: Anion Gap 15 mmol/L (10-20); BUN (Urea Nitrogen) 24 mg/dL (9.8-20.1); Calc. Creatinine Clearance 73 mL/min (70-130); Carbon Dioxide 24 mmol/L (23-31); Chloride 104 mmol/L (98-107); Glucose 125 mg/dL (83-110); Potassium 3.5 mmol/L (3.5-5.1); Sodium 139 mmol/L (136-145)
[2020-06-07 06:24] LABS: #Lymphocytes 0.8 thou/uL (1.20-3.40); #Monocytes 0.3 thou/uL (0.11-0.59); #Neutrophils 1.3 thou/uL (1.40-6.50); %Basophils 1.6 % (0.0-1.0); %Lymphocytes 33.1 % (21.0-51.0); %Monocytes 12.2 % (0.0-10.0); %Neutrophils 53.1 % (42.0-75.0); Anisocytosis SLIGHT = 6-15 cells (100X) (0-5/hpf); Hemoglobin 7.9 g/dL (12.0-16.0); MDiff Complete? YES; Mean Corpuscular HGB CONC 33.7 g/dL (32.0-36.0); Mean Corpuscular Hemoglobin 38.2 pg (27.0-31.0); Mean Platelet Volume 7.8 fL (7.4-10.4); Platelet Count 76 thou/uL (130-400); Platelet Morphology Comment Appears Decreased; Red Blood Cell (RBC) Count 2.06 mill/uL (4.20-5.40); White Blood Cell (WBC) Count 2.4 thou/uL (4.8-10.8)
[2020-06-07] MEDS: Sodium Chloride 0.9% 1,000 ML IV SCH (06:35)
[2020-06-07] MEDS ORDERED: predniSONE 1 MG TAB PO SCH (08:00)
[2020-06-07] MEDS ORDERED: Hydrochlorothiazide 25 MG TAB PO SCH (09:00)
[2020-06-07] MEDS ORDERED: Calcium Carbonate 600 MG + Vit D TAB PO SCH (09:00)
[2020-06-07] MEDS: Gabapentin 300 MG CAP PO SCH ×2 (09:42→16:29)
[2020-06-07] MEDS: Metoprolol Tartrate 25 MG TAB PO SCH (09:43)
[2020-06-07] MEDS: Vit A,C & E/Lutein/Minerals Tablet PO SCH (09:43)
[2020-06-07] MEDS: SYSTANE GEL OPHTH DROPS 10 ML EA EYE SCH (16:30)
[2020-06-07 17:24] VITALS: BP 104/67; TEMP 98.6
== END 2020-06-07 17:56 | disposition home or self-care (01) ==
LOC: SDC 07:34 → SURG A 13:09 → SDC 06-07 17:56
PROVIDERS: ATTEND Surgery
PROC: 01NB0ZZ Release Lumbar Nerve, Open Approach (ICD-10-PCS; principal; 2020-06-06)
DX: M48.062 Spinal stenosis, lumbar region with neurogenic claudication (principal); M54.16 Radiculopathy, lumbar region; Z79.01 Long term (current) use of anticoagulants; Z79.899 Other long term (current) drug therapy; Z88.5 Allergy status to narcotic agent; Z88.8 Allergy status to other drugs, medicaments and biological substances
CPT/HCPCS: 36430; 63047; 63048 ×2; 76000; 80048; 85025; 86850; 86900; 86901; 86920; P9016; P9035; 36415; J0690; J1885; J2405; J2704; J2765; J3010; J3370; J7512; S0028

== ENCOUNTER 2020-06-12 21:30 | Inpatient (IN) | payer MEDICARE ==
[~2020-06-12 21:30] MED LIST changes: +Iopamidol-370 76% 500 ML 1 ML ONE; -Iopamidol-M 300 61% 15 ML VIAL ONE
[2020-06-12] MEDS ORDERED: Cefepime 2 GM VIAL ONE (22:11)
[2020-06-12] MEDS ORDERED: Ibuprofen 200 MG TAB ONE (22:12)
[2020-06-12] MEDS ORDERED: Acetaminophen 500 MG TAB ONE (22:19)
[2020-06-12 22:37] LABS: ALT (SGPT) 30 U/L (8-55); AST (SGOT) 37 U/L (5-34); Albumin 3.7 g/dL (3.4-4.8); Alkaline Phosphatase 76 U/L (40-110); Anion Gap 16 mmol/L (10-20); BUN (Urea Nitrogen) 18 mg/dL (9.8-20.1); Bilirubin, Total 1.1 mg/dL (0.2-1.2); Calc. Creatinine Clearance 0 mL/min (70-130); Calcium 7.9 mg/dL (7.8-10.44); Carbon Dioxide 22 mmol/L (23-31); Chloride 105 mmol/L (98-107); Globulin 1.7 g/dL (2.4-3.5); Glucose 93 mg/dL (83-110); Lipase 10 U/L (8-78); Potassium 3.3 mmol/L (3.5-5.1); Protein, Total 5.4 g/dL (5.8-8.1); Sodium 140 mmol/L (136-145)
[2020-06-12 22:59] LABS: CKMB 1.1 ng/mL (0-6.6)
[2020-06-12 23:05] LABS: Anisocytosis SLIGHT = 6-15 cells (100X) (0-5/hpf); Band 15 % (5-11); Eosinophils 1 % (0-10); Lymphocytes 11 % (21-51); MDiff Complete? YES; Mean Corpuscular HGB CONC 33.9 g/dL (32.0-36.0); Mean Corpuscular Hemoglobin 37.2 pg (27.0-31.0); Monocytes 3 % (0-10); Neutrophil 70 % (42-75); Platelet Count 88 thou/uL (130-400); Platelet Morphology Comment Appears Decreased; RBC Distribution Width 16.5 % (11.5-14.5); Red Blood Cell (RBC) Count 2.69 mill/uL (4.20-5.40); White Blood Cell (WBC) Count 8.1 thou/uL (4.8-10.8)
[2020-06-12] MEDS ORDERED: Digoxin 0.5 MG/2 ML AMP ONE (23:17)
[2020-06-12] MEDS ORDERED: Vancomycin 1 GM/200 ML BAG ONE (23:22)
[2020-06-12 23:30] LABS: SARS-CoV-2 NAA Rapid Test Not Detected (NotDetected)
[2020-06-12] MEDS ORDERED: Norepinephrine 8 MG/0.9% NS 250 ML IVPB SCH (23:45)
[2020-06-13 01:33] LABS: Bacteria/HPF None Seen HPF (None Seen); Bilirubin Negative (Negative); Blood, Urine Trace (Negative); Clarity Clear (Clear); Glucose, Urine (Dipstick) Normal (Negative); Ketone, Urine 10 mg/dL (Negative); Leukocyte Negative Leu/uL (Negative); Nitrite Negative (Negative); Protein, Urine (Dipstick) 10 mg/dL (Neg-Trace); RBC/HPF 0-3 HPF (0-3); Squamous Epithelial 0-3 HPF (0-3); Urobilinogen Normal mg/dL (Less than 2); WBC/HPF 0-3 HPF (0-3); pH, Urine 6.5 (5.0-9.0)
[2020-06-13 02:29] LABS: Troponin I 0.249 ng/mL (< 0.028)
[2020-06-13] MEDS ORDERED: Potassium Chloride 20 MEQ TAB PO SCH (03:45)
[2020-06-13] MEDS ORDERED: VANCOMYCIN 1.25 GM/250 ML BAG IVPB SCH (04:00)
[2020-06-13 05:21] LABS: Troponin I 0.338 ng/mL (< 0.028)
[2020-06-13 06:07] VITALS: BMI 31.7
[2020-06-13] MEDS ORDERED: Enoxaparin Sodium 80 MG/0.8 ML SYRINGE SC SCH ×2 (06:30→21:00)
[2020-06-13] MEDS: Piperacillin/Tazobactam 4.5 GM in Sodium Chloride 0.9% 100 ML IVPB SCH ×3 (06:36→21:47)
[2020-06-13] MEDS ORDERED: traMADol HCl 50 MG TAB PO PRN (07:33)
[2020-06-13] MEDS: Acetaminophen 325 MG TAB PO PRN ×3 (07:44→20:11)
[2020-06-13] MEDS: Ondansetron PF 4 MG/2 ML Vial IVP PRN ×3 (08:42→21:47)
[2020-06-13 08:46] LABS: Hemoglobin 9.6 g/dL (12.0-16.0); Mean Corpuscular HGB CONC 34.1 g/dL (32.0-36.0); Mean Corpuscular Hemoglobin 37.9 pg (27.0-31.0); Platelet Count 81 thou/uL (130-400); RBC Distribution Width 16.4 % (11.5-14.5); Red Blood Cell (RBC) Count 2.54 mill/uL (4.20-5.40); White Blood Cell (WBC) Count 7.4 thou/uL (4.8-10.8)
[2020-06-13 08:59] LABS: Anion Gap 13 mmol/L (10-20); BUN (Urea Nitrogen) 17 mg/dL (9.8-20.1); Calc. Creatinine Clearance 74 mL/min (70-130); Calcium 7.4 mg/dL (7.8-10.44); Carbon Dioxide 22 mmol/L (23-31); Chloride 108 mmol/L (98-107); Glucose 109 mg/dL (83-110); Potassium 3.4 mmol/L (3.5-5.1); Sodium 140 mmol/L (136-145)
[2020-06-13] MEDS: Amiodarone 450 MG in Dextrose 5% in Water 250 ML IVPB SCH ×2 (10:05→15:31)
[2020-06-13 10:17] LABS: Band 15 % (5-11); Bite Cells SLIGHT = 2-5 cells (100X) (0-1/hpf); Lymphocytes 17 % (21-51); MDiff Complete? YES; Monocytes 8 % (0-10); Neutrophil 59 % (42-75); Platelet Morphology Comment Appears Decreased; Polychromasia SLIGHT = 2-3 cells (100X) (0-2/hpf); Reactive Lymphocytes 1 % (0-10); Vacuoles SLIGHT
[2020-06-13] MEDS: Hydrocortisone Sod Succ/PF 100 mg/2 ml Vial IVP SCH ×2 (12:58→18:49)
[2020-06-13] MEDS: Gabapentin 300 MG CAP PO SCH ×2 (14:43→20:13)
[2020-06-13] MEDS: Diazepam 2 MG TAB PO PRN ×2 (15:31→21:47)
[2020-06-13] MEDS ORDERED: VANCOMYCIN 1.25 GM/250 ML BAG 1.25 GM in Premix Bag 1 BAG IVPB SCH (20:00)
[2020-06-14] MEDS: Hydrocortisone Sod Succ/PF 100 mg/2 ml Vial IVP SCH ×5 (00:37→23:49)
[2020-06-14 03:35] LABS: #Lymphocytes 0.5 thou/uL (1.20-3.40); #Monocytes 0.2 thou/uL (0.11-0.59); #Neutrophils 4.9 thou/uL (1.40-6.50); %Basophils 0.4 % (0.0-1.0); %Eosinophils 0.1 % (0.0-10.0); %Lymphocytes 9.6 % (21.0-51.0); %Monocytes 2.9 % (0.0-10.0); Hemoglobin 8.7 g/dL (12.0-16.0); Mean Corpuscular HGB CONC 33.6 g/dL (32.0-36.0); Mean Corpuscular Hemoglobin 37.4 pg (27.0-31.0); Mean Platelet Volume 7.1 fL (7.4-10.4); Platelet Count 56 thou/uL (130-400); RBC Distribution Width 15.9 % (11.5-14.5); Red Blood Cell (RBC) Count 2.32 mill/uL (4.20-5.40); White Blood Cell (WBC) Count 5.6 thou/uL (4.8-10.8)
[2020-06-14] MEDS: Diazepam 2 MG TAB PO PRN ×4 (03:56→20:21)
[2020-06-14] MEDS: Ondansetron PF 4 MG/2 ML Vial IVP PRN ×2 (03:56→17:08)
[2020-06-14 03:59] LABS: Anion Gap 10 mmol/L (10-20); BUN (Urea Nitrogen) 14 mg/dL (9.8-20.1); Calc. Creatinine Clearance 79 mL/min (70-130); Calcium 7.9 mg/dL (7.8-10.44); Carbon Dioxide 24 mmol/L (23-31); Chloride 109 mmol/L (98-107); Glucose 128 mg/dL (83-110); Magnesium 1.9 mg/dL (1.6-2.6); Potassium 3.4 mmol/L (3.5-5.1); Sodium 140 mmol/L (136-145)
[2020-06-14] MEDS: Amiodarone 450 MG in Dextrose 5% in Water 250 ML IVPB SCH (05:46)
[2020-06-14] MEDS ORDERED: predniSONE 20 MG TAB PO SCH (08:00)
[2020-06-14] MEDS: Gabapentin 300 MG CAP PO SCH ×3 (08:54→20:20)
[2020-06-14] MEDS: Piperacillin/Tazobactam 4.5 GM in Sodium Chloride 0.9% 100 ML IVPB SCH (08:57)
[2020-06-14] MEDS ORDERED: Electrolyte Replacement Protocol 1 EACH FS ONE (09:29)
[2020-06-14] MEDS ORDERED: Electrolyte Replacement Protocol FS PRN (10:00)
[2020-06-14] MEDS ORDERED: Magnesium 2 GM/50 ML 2 GM in Premix Bag 1 BAG IVPB SCH (10:00)
[2020-06-14] MEDS ORDERED: Potassium Bicarbonate/Cit Ac 20 MEQ TAB PER TUBE SCH (10:00)
[2020-06-14] MEDS: Acetaminophen 325 MG TAB PO PRN ×3 (10:48→20:21)
[2020-06-14] MEDS: Cefepime 2 GM in Sodium Chloride 0.9% 100 ML IVPB SCH ×2 (10:49→21:36)
[2020-06-14 15:03] LABS: RBC Count-Automated (BF) 5551 /cu.mm; WBC/Nucleated-Auto (BF) 110 uL
[2020-06-14 15:17] LABS: Potassium 3.5 mmol/L (3.5-5.1)
[2020-06-14 15:45] LABS: BF Color Pink; Body Fluid Source Synovial Fluid; Clarity Hazy (Clear); Tube # EDTA
[2020-06-14 15:49] LABS: BF Segmented Neutrophils 13 %; Cell Count Non Hematic 81 %; Lymphocytes 6 %
[2020-06-14] MEDS ORDERED: diphenhydrAMINE 25 MG CAP PO SCH (18:30)
[2020-06-14 19:32] LABS: Vancomycin, Trough 7.4 ug/mL
[2020-06-14] MEDS: Vancomycin 1 GM in Premix Bag 1 BAG IVPB SCH (20:21)
[2020-06-15 04:58] LABS: Hemoglobin 8.4 g/dL (12.0-16.0); Lymphocytes 15 % (21-51); MDiff Complete? YES; Mean Corpuscular HGB CONC 33.6 g/dL (32.0-36.0); Mean Corpuscular Hemoglobin 37.2 pg (27.0-31.0); Mean Platelet Volume 7.4 fL (7.4-10.4); Monocytes 8 % (0-10); Neutrophil 77 % (42-75); Platelet Count 96 thou/uL (130-400); Platelet Morphology Comment Appears Decreased; RBC Distribution Width 15.8 % (11.5-14.5); Red Blood Cell (RBC) Count 2.24 mill/uL (4.20-5.40); White Blood Cell (WBC) Count 3.7 thou/uL (4.8-10.8)
[2020-06-15 05:04] LABS: Anion Gap 8 mmol/L (10-20); BUN (Urea Nitrogen) 20 mg/dL (9.8-20.1); Calc. Creatinine Clearance 81 mL/min (70-130); Calcium 8.1 mg/dL (7.8-10.44); Carbon Dioxide 28 mmol/L (23-31); Chloride 109 mmol/L (98-107); Glucose 148 mg/dL (83-110); Potassium 3.6 mmol/L (3.5-5.1); Sodium 141 mmol/L (136-145)
[2020-06-15] MEDS: Hydrocortisone Sod Succ/PF 100 mg/2 ml Vial IVP SCH ×3 (05:07→17:07)
[2020-06-15] MEDS: Vancomycin 1 GM in Premix Bag 1 BAG IVPB SCH ×2 (07:34→20:47)
[2020-06-15] MEDS: Gabapentin 300 MG CAP PO SCH ×3 (07:35→20:48)
[2020-06-15] MEDS: Cefepime 2 GM in Sodium Chloride 0.9% 100 ML IVPB SCH ×2 (07:35→20:46)
[2020-06-15] MEDS: Ondansetron PF 4 MG/2 ML Vial IVP PRN (07:36)
[2020-06-15] MEDS ORDERED: Amiodarone 200 MG TAB PO SCH (10:45)
[2020-06-15] MEDS ORDERED: Furosemide 40 MG/4 ML VIAL SLOW IVP SCH (12:30)
[2020-06-15] MEDS ORDERED: Loperamide HCl 2 MG CAP PO PRN (18:19)
[2020-06-15] MEDS: Polyethylene Glycol OPTH DROP 15 ML BOT EA EYE SCH (20:45)
[2020-06-15] MEDS: Vit A,C & E/Lutein/Minerals Tablet PO SCH (20:48)
[2020-06-15] MEDS: Amiodarone 200 MG TAB PO SCH (20:50)
[2020-06-15] MEDS: Diazepam 2 MG TAB PO PRN (21:16)
[2020-06-16] MEDS: Hydrocortisone Sod Succ/PF 100 mg/2 ml Vial IVP SCH ×4 (00:14→18:49)
[2020-06-16 04:57] LABS: #Lymphocytes 0.7 thou/uL (1.20-3.40); #Monocytes 0.3 thou/uL (0.11-0.59); #Neutrophils 1.6 thou/uL (1.40-6.50); %Basophils 0.3 % (0.0-1.0); %Eosinophils 0.4 % (0.0-10.0); %Lymphocytes 26.5 % (21.0-51.0); %Monocytes 10.9 % (0.0-10.0); %Neutrophils 61.9 % (42.0-75.0); Hemoglobin 8.1 g/dL (12.0-16.0); Mean Corpuscular HGB CONC 34.3 g/dL (32.0-36.0); Mean Corpuscular Hemoglobin 38.3 pg (27.0-31.0); Mean Platelet Volume 7.5 fL (7.4-10.4); Platelet Count 100 thou/uL (130-400); RBC Distribution Width 15.7 % (11.5-14.5); Red Blood Cell (RBC) Count 2.12 mill/uL (4.20-5.40); White Blood Cell (WBC) Count 2.6 thou/uL (4.8-10.8)
[2020-06-16 05:26] LABS: Anion Gap 10 mmol/L (10-20); BUN (Urea Nitrogen) 21 mg/dL (9.8-20.1); Calc. Creatinine Clearance 82 mL/min (70-130); Calcium 8.2 mg/dL (7.8-10.44); Carbon Dioxide 26 mmol/L (23-31); Chloride 107 mmol/L (98-107); Glucose 119 mg/dL (83-110); Potassium 3.1 mmol/L (3.5-5.1); Sodium 140 mmol/L (136-145)
[2020-06-16 07:36] LABS: Vancomycin, Trough 16.2 ug/mL
[2020-06-16] MEDS ORDERED: Potassium Chloride 20 MEQ TAB PO SCH (08:00)
[2020-06-16] MEDS: Amiodarone 200 MG TAB PO SCH ×2 (09:06→21:53)
[2020-06-16] MEDS: Gabapentin 300 MG CAP PO SCH ×3 (09:08→21:52)
[2020-06-16] MEDS: Vit A,C & E/Lutein/Minerals Tablet PO SCH ×2 (09:09→21:52)
[2020-06-16] MEDS: Polyethylene Glycol OPTH DROP 15 ML BOT EA EYE SCH ×3 (09:09→21:54)
[2020-06-16] MEDS: Cefepime 2 GM in Sodium Chloride 0.9% 100 ML IVPB SCH ×2 (09:58→21:52)
[2020-06-16] MEDS: Acetaminophen 325 MG TAB PO PRN (14:54)
[2020-06-16] MEDS: Diazepam 2 MG TAB PO PRN (18:50)
[2020-06-17] MEDS: Hydrocortisone Sod Succ/PF 100 mg/2 ml Vial IVP SCH ×2 (00:58→05:55)
[2020-06-17 04:43] LABS: Hemoglobin 8.6 g/dL (12.0-16.0); Mean Corpuscular HGB CONC 33.9 g/dL (32.0-36.0); Mean Corpuscular Hemoglobin 37.3 pg (27.0-31.0); Mean Platelet Volume 7.5 fL (7.4-10.4); Platelet Count 91 thou/uL (130-400); RBC Distribution Width 15.3 % (11.5-14.5); Red Blood Cell (RBC) Count 2.32 mill/uL (4.20-5.40)
[2020-06-17 05:01] LABS: Anion Gap 11 mmol/L (10-20); BUN (Urea Nitrogen) 22 mg/dL (9.8-20.1); Calc. Creatinine Clearance 82 mL/min (70-130); Calcium 8.3 mg/dL (7.8-10.44); Carbon Dioxide 25 mmol/L (23-31); Chloride 110 mmol/L (98-107); Glucose 113 mg/dL (83-110); Potassium 3.4 mmol/L (3.5-5.1); Sodium 143 mmol/L (136-145)
[2020-06-17 05:02] LABS: Band 4 % (5-11); Lymphocytes 34 % (21-51); MDiff Complete? YES; Metamyelocyte 4 % (0-0); Monocytes 2 % (0-10); Myelocyte 1 % (0-0); Neutrophil 44 % (42-75); Platelet Morphology Comment Appears Decreased; Reactive Lymphocytes 11 % (0-10)
[2020-06-17] MEDS ORDERED: Potassium Chloride 20 MEQ TAB PO SCH (06:30)
[2020-06-17] MEDS: Cefepime 2 GM in Sodium Chloride 0.9% 100 ML IVPB SCH ×2 (08:31→20:49)
[2020-06-17] MEDS: Polyethylene Glycol OPTH DROP 15 ML BOT EA EYE SCH ×3 (08:32→20:48)
[2020-06-17] MEDS: Gabapentin 300 MG CAP PO SCH ×3 (08:32→20:49)
[2020-06-17] MEDS: Vit A,C & E/Lutein/Minerals Tablet PO SCH ×2 (08:32→20:49)
[2020-06-17] MEDS: Amiodarone 200 MG TAB PO SCH ×2 (08:32→20:48)
[2020-06-17] MEDS: Acetaminophen 325 MG TAB PO PRN (20:48)
[2020-06-18 04:49] LABS: Hemoglobin 8.3 g/dL (12.0-16.0); Mean Corpuscular HGB CONC 34.9 g/dL (32.0-36.0); Mean Corpuscular Hemoglobin 38.6 pg (27.0-31.0); Mean Platelet Volume 7.4 fL (7.4-10.4); Platelet Count 88 thou/uL (130-400); RBC Distribution Width 15.9 % (11.5-14.5); Red Blood Cell (RBC) Count 2.14 mill/uL (4.20-5.40); White Blood Cell (WBC) Count 4.6 thou/uL (4.8-10.8)
[2020-06-18 05:08] LABS: Anion Gap 9 mmol/L (10-20); BUN (Urea Nitrogen) 24 mg/dL (9.8-20.1); Band 2 % (5-11); Calc. Creatinine Clearance 83 mL/min (70-130); Calcium 8.2 mg/dL (7.8-10.44); Carbon Dioxide 27 mmol/L (23-31); Chloride 110 mmol/L (98-107); Glucose 77 mg/dL (83-110); Hypochromia SLIGHT = 6-15 cells (100X) (0-5/hpf); Lymphocytes 45 % (21-51); MDiff Complete? YES; Macrocytosis SLIGHT = 6-15 cells (100X) (0-5/hpf); Monocytes 17 % (0-10); Neutrophil 20 % (42-75); Platelet Morphology Comment Appears Decreased; Potassium 3.2 mmol/L (3.5-5.1); Reactive Lymphocytes 16 % (0-10); Sodium 143 mmol/L (136-145)
[2020-06-18] MEDS ORDERED: Potassium Chloride 20 MEQ TAB PO SCH (06:45)
[2020-06-18] MEDS: Cefepime 2 GM in Sodium Chloride 0.9% 100 ML IVPB SCH (08:56)
[2020-06-18] MEDS: Polyethylene Glycol OPTH DROP 15 ML BOT EA EYE SCH ×2 (08:56→16:26)
[2020-06-18] MEDS: Gabapentin 300 MG CAP PO SCH ×2 (08:56→16:26)
[2020-06-18] MEDS: Amiodarone 200 MG TAB PO SCH (08:56)
[2020-06-18] MEDS: Vit A,C & E/Lutein/Minerals Tablet PO SCH (08:57)
[2020-06-18] MEDS: Acetaminophen 325 MG TAB PO PRN (10:10)
[2020-06-18] MEDS ORDERED: Apixaban 5 MG TAB PO SCH ×2 (12:30→21:00)
[2020-06-18 15:46] VITALS: BP 141/95; TEMP 97.7
[2020-06-18] MEDS: Diazepam 2 MG TAB PO PRN (16:26)
== END 2020-06-18 19:14 | disposition home or self-care (01) | DRG 871 ==
LOC: ERS 21:30 → CCU 06-13 01:25 → 2NO 06-14 18:05
PROVIDERS: ADMIT Student in an Organized Health Care Education/Training Program; ATTEND Internal Medicine
PROC: 3E033XZ Introduction of Vasopressor into Peripheral Vein, Percutaneous Approach (ICD-10-PCS; 2020-06-13)
PROC: 06HY33Z Insertion of Infusion Device into Lower Vein, Percutaneous Approach (ICD-10-PCS; 2020-06-13)
PROC: 4B02XSZ Measurement of Cardiac Pacemaker, External Approach (ICD-10-PCS; 2020-06-13)
PROC: 30233R1 Transfusion of Nonautologous Platelets into Peripheral Vein, Percutaneous Approach (ICD-10-PCS; principal; 2020-06-14)
PROC: 0S9C3ZX Drainage of Right Knee Joint, Percutaneous Approach, Diagnostic (ICD-10-PCS; 2020-06-14)
DX: A41.4 Sepsis due to anaerobes (principal); R65.21 Severe sepsis with septic shock; I21.A1 Myocardial infarction type 2; J96.90 Respiratory failure, unspecified, unspecified whether with hypoxia or hypercapnia; D61.818 Other pancytopenia; J90 Pleural effusion, not elsewhere classified; Z20.822 Contact with and (suspected) exposure to COVID-19; N18.2 Chronic kidney disease, stage 2 (mild); I12.9 Hypertensive chronic kidney disease with stage 1 through stage 4 chronic kidney disease, or unspecified chronic kidney disease; M19.90 Unspecified osteoarthritis, unspecified site; E87.6 Hypokalemia; I49.5 Sick sinus syndrome; G89.4 Chronic pain syndrome; J44.9 Chronic obstructive pulmonary disease, unspecified; M25.561 Pain in right knee; R19.7 Diarrhea, unspecified; Z79.01 Long term (current) use of anticoagulants; Z88.6 Allergy status to analgesic agent; Z88.4 Allergy status to anesthetic agent; Z88.5 Allergy status to narcotic agent; Z88.8 Allergy status to other drugs, medicaments and biological substances; Z79.899 Other long term (current) drug therapy; Z79.51 Long term (current) use of inhaled steroids; Z79.52 Long term (current) use of systemic steroids; Z90.49 Acquired absence of other specified parts of digestive tract; Z95.0 Presence of cardiac pacemaker
CPT/HCPCS: 0240U; 36415; 36430; 36556; 51702; 71045; 71260; 74177; 80048; 80053; 80202; 81003; 81015; 82533; 82553; 83605; 83630; 83690; 83735; 84484; 85025; 85060; 85652; 86140; 86850; 86900; 86901; 87040; 87070; 87077; 87149; 87186; 87205; 87324; 87328; 87329; 87427; 87449; 89051; 93005; 93306; 93970; 96365; 96366; 96367; 96375; 99292; J0282; J0692; J1160; J1720; J1940; J2405; J2543; J3370; J3475; J3490; J7070; P9035; P9045; Q0163; Q9967

== ENCOUNTER 2021-03-07 09:19 | Outpatient (CLI) | payer MEDICARE | END 2021-03-07 09:20 | disposition home or self-care (01) | LOC: CT 09:19 | PROVIDERS: ATTEND Internal Medicine Critical Care Medicine | DX: R06.00 Dyspnea, unspecified (principal); J98.4 Other disorders of lung | CPT/HCPCS: 71250 ==